=== PATIENT | male | born 1960 | race African-American/Black ===

== ENCOUNTER 2019-04-20 08:29 | Inpatient (IN) | payer MEDICARE ==
--- NOTE | 2019-04-20 08:56 | RAD ---
FRONTAL VIEW CHEST: INDICATION: Dyspnea. FINDINGS: There is enlargement of the cardiac silhouette and pulmonary vasculature. Patchy right perihilar opa cification is present. No significant effusion or discrete pneumothorax. IMPRESSION: 1. Findings indicate decompensated congestive heart failure. 2. Patchy right perihilar opacity may relate to asymmetric edema versus superimposed pneumonia. Recommend followup to resolution. Transcribed Date/Time: 04/20/2019 9:01 AM
[2019-04-20 09:04] LABS: #Basophils 0.1 thou/uL (0.0-0.2); #Eosinphils 0.1 thou/uL (0.0-0.7); #Lymphocytes 1.4 thou/uL (1.20-3.40); #Monocytes 0.6 thou/uL (0.11-0.59); %Basophils 0.8 % (0.0-1.0); %Eosinophils 1.2 % (0.0-10.0); %Lymphocytes 19.1 % (21.0-51.0); %Monocytes 7.8 % (0.0-10.0); %Neutrophils 71.1 % (42.0-75.0); Hemoglobin 10.8 g/dL (14.0-18.0); Mean Corpuscular HGB CONC 32.8 g/dL (32.0-36.0); Mean Corpuscular Hemoglobin 30.1 pg (27.0-31.0); Mean Corpuscular Volume 91.8 fL (78.0-98.0); Mean Platelet Volume 8.3 fL (7.4-10.4); Platelet Count 199 thou/uL (130-400); RBC Distribution Width 13.8 % (11.5-14.5); Red Blood Cell (RBC) Count 3.58 mill/uL (4.70-6.10); White Blood Cell (WBC) Count 7.1 thou/uL (4.8-10.8)
[2019-04-20 09:23] LABS: PTT 37.1 SEC (22.9-36.1); Prothrombin Time 22.7 SEC (12.0-14.7)
[2019-04-20 09:24] LABS: D-Dimer Test 0.95 *mcg/mL (0.27-0.43)
[2019-04-20 09:34] LABS: ALT (SGPT) 30 U/L (8-55); AST (SGOT) 24 U/L (5-34); Alkaline Phosphatase 154 U/L (40-150); Anion Gap 10 mmol/L (10-20); BUN (Urea Nitrogen) 19 mg/dL (8.4-25.7); Bilirubin, Total 0.5 mg/dL (0.2-1.2); Calc. Creatinine Clearance 0 mL/min (70-130); Calcium 9.8 mg/dL (7.8-10.44); Carbon Dioxide 27 mmol/L (22-29); Chloride 106 mmol/L (98-107); Estimated GFR-MDRD 56; Globulin 4.1 g/dL (2.4-3.5); Glucose 293 mg/dL (70-105); Potassium 4.3 mmol/L (3.5-5.1); Protein, Total 8.1 g/dL (6.0-8.3); Sodium 139 mmol/L (136-145)
[2019-04-20] MEDS ORDERED: ISOVUE-370 76%-LOCM 1 ML ONE (10:05)
--- NOTE | 2019-04-20 10:06 | ULT ---
US Venous Doppler Lt Unilat History: Known deep venous thrombosis currently on treatment Comparison: None. Findings: Real-time grayscale, color, and spectral analysis of the left lower extremity venous system was performed. The common femoral, femoral, proximal portions greater saphenous and deep femoral veins as well as the popliteal and posterior tibial veins were attempted to be interrogated. There is occlusive thrombus of the left common femoral, femoral, proximal femoral veins. Remainder of the lower extremity was unable to be visualized due to extensive edema. Impression: Occlusive thrombus within the left common femoral and proximal femoral veins. Code CR: Dr. Tim.
--- NOTE | 2019-04-20 10:28 | CT ---
Exam: CT angiogram of the chest HISTORY: Dyspnea. Difficulty breathing, x2 days. COMPARISON: None TECHNIQUE: CT angiogram of the chest is performed in the axial plane. Three-dimensional reformatted i mages are submitted for interpretation FINDINGS: Mediastinum: Scattered nonspecific, nonenlarged paratracheal lymph nodes. Prominent subcarinal lymph node measuring 2.7 x 0.9 cm. HEART: Normal size. No significant pericardial fluid. Aorta: No aneurysm or dissection Upper solid abdominal viscera: Punctate gallstones. No CT evidence of cholecystitis. There is a infer ior vena cava filter which appears to be suprarenal in location and within the intrahepatic IVC. Trachea and central bronchi: Patent Pleural spaces: Small bilateral pleural effusions Lung parenchyma: Dependent atelectatic changes. Linear opacities may represent areas of scar or atele ctasis. No consolidation or masses. Pneumothorax: None Osseous structures: No lytic or blastic lesions Pulmonary arteries: Adequate contrast opacification pulmonary arterial system to the level of segment al arteries. No filling defect to suggest pulmonary embolism IMPRESSION: 1. No evidence of pulmonary artery embolism to the segmental arteries 2. Small bilateral pleural effusions. 3. Dependent atelectatic changes, without consolidation 4. Cholelithiasis without cholecystitis 5. IVC filter as described.
[2019-04-20] MEDS ORDERED: Morphine 4 MG/ML VIAL ONE (11:29)
[2019-04-20] MEDS ORDERED: Ondansetron PF 4 MG/2 ML Vial ONE (11:29)
[2019-04-20] MEDS ORDERED: Enoxaparin Sodium 100 MG/ML SYRINGE ONE (11:29)
--- NOTE | 2019-04-20 11:36 | PDOC.FPRHP ---
- History of Present Illness Chief Complaint: Leg pain/swelling, Dyspnea History of Present Illness: Pt reports last 3-4 nights when he lays down to sleep states he is getting SOB. Pt keeps getting woke up because he is SOB. Pt reports also getting SOB if walking a short distance. Pt also reports having bilateral lower leg swelling which is chronic but worse than his baseline. Pt reports legs being swollen ever since surgery back in november 2018 where he had clots in his legs removed. Denies any chest pain or headache. Pt denies any cough. Denies an recent illness. Pt blind in Left eye. Reports this as an old problem. Pt has been without home medicine for one week including his coumadin. Denies history of cardiac problems aside from HTN. Hx is significant for previous DVT's with extensive clot burden leading to at least 3 catheterization procedures to remove clots or place stents (pt is unsure what was done). He also had an IVC filter placed. - Allergies/Adverse Reactions Allergies Allergy/AdvReac Type Severity Reaction Status Date / Time No Known Allergies Allergy Unverified 04/20/19 11:57 - Home Medications Comments: Atorvastatin 40 mg daily Hydralazine 100 mg 2 tabs by mouth 2x daily Amlodipine 10 mg once daily Metoprolol Succinate ER 25 mg 1 tab once daily Metoprolol succinate ER 75 mg 1 tab once daily. Warfarin 5 mg by mouth once daily in the evening 20u Levemir in morning and night. 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 quit smoking 30 years ago. Occasionaly drinks beer. No illicit drug use Full code - Review of Systems General: reports: fatigue. denies: fever/chills, weight/appetite/sleep changes Eyes: denies: eye pain, vision changes ENT: denies: nasal congestion, rhinorrhea Respiratory: reports: shortness of breath, exercise intolerance. denies: cough , congestion Cardiovascular: reports: edema, orthopnea. denies: chest pain, palpitation, paroxysmal nocturnal dyspnea Gastrointestinal: denies: nausea, vomiting, diarrhea, constipation, abdominal pain, GI bleeding Skin: denies: rashes, lesions, itching Musculoskeletal: reports: swelling (In his lower extremities). denies: pain, stiffness Neurological: denies: numbness, seizure, weakness Psychological: denies: anxiety, depression - Vital signs BP: [186/103] HR: [88] RR: [18] Tmax: [97.6] Pox: 90% on [RA] Wt: [] - Physical Exam Constitutional: NAD, awake, alert and oriented, well developed HEENT: normocephalic and atraumatic, PERRLA, MMM -HEENT: hyperemic conjunctiva bilaterally, loss of vision in left eye Neck: supple, FROM, no JVD Chest: no-tender to palpation Heart: RRR, normal S1/S2, no murmurs/rubs/gallops, pulses present -Heart: 1+ pitting edema on the right, 2+ on the left Lungs: no respiratory distress, no wheezing -Lungs: Bilateral crackles in middle and lower kent, good excursion Abdomen: soft, non-tender, bowel sounds present Musculoskeletal: normal structure, ROM grossly normal -Musculoskeletal: mild left calf tenderness Neurological: no focal deficit -Neurological: A&O x 3 Skin: no rash/lesions, capillary refill <2 seconds Heme/Lymphatic: no unusual bruising or bleeding, no purpura Psychiatric: normal mood and affect, intact recent and remote memory FMR H&P: Results - Labs Result Diagrams: 04/20/19 08:50 04/20/19 08:50 Lab results: WBC 7.1 thou/uL (4.8-10.8) 04/20/19 08:50 Hgb 10.8 g/dL (14.0-18.0) L 04/20/19 08:50 Hct 32.8 % (42.0-52.0) L 04/20/19 08:50 MCV 91.8 fL (78.0-98.0) 04/20/19 08:50 Plt Count 199 thou/uL (130-400) 04/20/19 08:50 Neutrophils % 71.1 % (42.0-75.0) 04/20/19 08:50 Sodium 139 mmol/L (136-145) 04/20/19 08:50 Potassium 4.3 mmol/L (3.5-5.1) 04/20/19 08:50 Chloride 106 mmol/L (98-107) 04/20/19 08:50 Carbon Dioxide 27 mmol/L (22-29) 04/20/19 08:50 BUN 19 mg/dL (8.4-25.7) 04/20/19 08:50 Creatinine 1.54 mg/dL (0.7-1.3) H 04/20/19 08:50 Glucose 293 mg/dL (70-105) H 04/20/19 08:50 Calcium 9.8 mg/dL (7.8-10.44) 04/20/19 08:50 Total Bilirubin 0.5 mg/dL (0.2-1.2) 04/20/19 08:50 AST 24 U/L (5-34) 04/20/19 08:50 ALT 30 U/L (8-55) 04/20/19 08:50 Alkaline Phosphatase 154 U/L (40-150) H 04/20/19 08:50 B-Natriuretic Peptide 101.9 pg/mL (0-100) H 04/20/19 08:50 Serum Total Protein 8.1 g/dL (6.0-8.3) 04/20/19 08:50 Albumin 4.0 g/dL (3.5-5.0) 04/20/19 08:50 - Radiology Interpretation CT scan - chest Status: image reviewed by me, report reviewed by me (No evidence of PAE to segment arteries. Small bilateral pleural effusions. Dependent atelectatic changes w/o consolidation, cholelithiasis w/o cholecystitis, IVC filter as described) US - venous Status: image reviewed by me, report reviewed by me (Occlusive thrombus w/n left common femoral and proximal femoral veins) Chest x-ray Status: image reviewed by me, report reviewed by me (findings indicate decompensated CHF. Patchy R. perihilar opacity may relate to asymmetiric edema vs superimposed pneumonia) FMR H&P: A/P - Problem List (1) DVT (deep venous thrombosis) Current Visit: Yes Status: Acute Code(s): I82.409 - ACUTE EMBOLISM AND THOMBOS UNSP DEEP VN UNSP LOWER EXTREMITY (2) Congestive heart failure (CHF) Current Visit: Yes Status: Acute Code(s): I50.9 - HEART FAILURE, UNSPECIFIED (3) Hypertension Current Visit: Yes Status: Acute Code(s): I10 - ESSENTIAL (PRIMARY) HYPERTENSION (4) Diabetes mellitus type 2, insulin dependent Current Visit: Yes Status: Acute Code(s): E11.9 - TYPE 2 DIABETES MELLITUS WITHOUT COMPLICATIONS; Z79.4 - NURSE MONITORING (CURRENT) USE OF INSULIN (5) Anemia Current Visit: Yes Status: Acute Code(s): D64.9 - ANEMIA, UNSPECIFIED (6) Acute kidney injury Current Visit: Yes Status: Acute Code(s): N17.9 - ACUTE KIDNEY FAILURE, UNSPECIFIED - Plan Deep Vein Thrombosis Previous DVT's requiring vascular catheterization for removal and placement of IVC filter, off of coumadin for 5 days recently, 2+ pitting edema on the left LLE US: occlusive thrombus within the left common femoral and proximal femoral veins CTA chest: no evidence of PE, bilateral pleural effusions, cholelithiasis, IVC filter -INR 2.0, D-dimer 0.95 -restart pt's coumadin 5mg -consider CV surg consult to assess for possibility of endovascular intervention -IVC filter in place -trying to obtain previous medical records from [facility] where procedures were preformed previously Dyspnea/Orthopnea - likely 2/2 CHF -BNP of 101.9 -Anemia 10.9 -holding off on IV fluids -Fluid restriction and low salt diet -Echo ordered -Lasix 20mg BID -Initial troponin neg, will trend DM II - insulin dependent -restart long acting insulin 20 units am and 20 units pm -mild sliding scale -hypoglycemia protocol -holding metformin due to current renal function REX -Cr 1.54 in the ED -unsure if this is baseline renal function in uncontrolled diabetic patient -holding off on fluids while we assess for new onset CHF -Lasix 20mg BID Hypertension -pt with SBP in 180's in the ED -restarted on home medications: metoprolol, amlodipine, hydralazine -will assess for control -consider starting ACEi due to DM for renal protection Condition: Stable Code status: Full Fluids: SL Diet: HH - low salt and fluid restriction 1800 Dispo: Admit to Telemetry, inpt with expected LOS >48hr in likely new onset CHF FMR H&P: Upper Level - Pertinent history I typed the above HPI. All findings and edits can be found above. - Pertinent findings CTA- no PE. IVC filter in place. Venous doppler shows femoral vein DVT. BNP in 100's. CXR shows decompensated CHF - Plan Date/Time: 04/20/19 8496 I, [Dima Royal, PGY-3], have evaluated this patient and agree with findings/plan as outlined by senior international tax manager resident. I was present with the senior international tax manager during the HPI interview. I scribed for the senior international tax manager. I made edits as needed and agree with above HPI. Pertinent changes/additions are listed here. Pt coming here w/ c/c of orthopnea. BNP mildly elevated. Bilateral Lung crackles on physical exam with bilateral Leg swelling. Will work up pt for new onset CHF. Will give lasix IV 20 mg. Will get ECHO. Consulted CHF clinic and cardiac rehab. May consider cardiac consult tmrw. Will trend troponin x3. Pt also has Femoral vein DVT. Pt has hx of blood clots. Will try and get records from [facility]. IVC filter in place noted on CTA. INR 2.0 and takes warfarin at home. continue current dosage. [place] for pain as needed.
[2019-04-20 13:26] LABS: Troponin I Less than 0.010 ng/mL (< 0.028)
[2019-04-20] MEDS ORDERED: Ondansetron PF 4 MG/2 ML Vial IVP PRN (14:58)
[2019-04-20] MEDS ORDERED: HYDROcodone/Acetaminophen 5/325 mg Tablet PO PRN ×2 (14:58)
[2019-04-20] MEDS ORDERED: Ondansetron ODT 4 MG TAB SL PRN (14:58)
[2019-04-20] MEDS ORDERED: Acetaminophen 325 MG TAB PO PRN ×2 (14:58→15:00)
[2019-04-20 15:03] VITALS: BMI 33.3
[2019-04-20] MEDS ORDERED: Dextrose 50% Abboject 50 ML SYRINGE SLOW IVP PRN (15:40)
[2019-04-20] MEDS ORDERED: Dextrose 5% in Water 1,000 ML IV PRN (15:40)
--- NOTE | 2019-04-20 16:52 | PDOC.EVN ---
Event Note - Event Note Event Note: Date/Time: 04/20/19 1650 I personally evaluated the patient and discussed the management with Dr. Perez I agree with the History, Examination, Assessment and Plan documented above with any addition or exceptions noted below - 58 yo male with h/o HTN, HLD, DM, h/o DVT on coumadin presented with SOB /orthopnea x 1 week. Has also had increased pedal edema. Denies any chest pain. (+) palpitations. Denies any fever /chills/cough/URI symptoms. States that he has been off his warfarin for last 5 days. PMH/PSH/Meds/All reviewed and agree with resident's documentation. T97.5 P82 RR18 BP 183/91 95% RA Exam repeated by me and agree with resident's findings. Labs: Ck=999, K=4.3, Fo=389, CO2=27, BUN/Cr=19/1.54, Wyxb=385, WBC=7.1 , H/H=10.8/32.8, Egi=559, PT/INR=22.7/2.0, RVJ=391.9, trop I<0.010, EKG= NSR, no ST changes. CXR- cardiomegaly and increased pulmonary vasculature. Venous doppler - occlusive thrombus in common femoral and proximal femoral vein. CT angio chest- no evidence of PE; small b/l pleural effusions. A/P: 1) Dyspnea/ orthopnea- unclear etiology- possible CHF. Will check echo. Consider obtaining records from prior physcian in [place]. 2) DVT- therapeutic on coumadin; continue warfarin; Monitor PT/INR. 3) DM- continue home meds. 4) HTN- resume home meds and adjust as needed.
[2019-04-20 18:01] LABS: Troponin I Less than 0.010 ng/mL (< 0.028)
[2019-04-20] MEDS ORDERED: hydrALAZINE 25 MG TAB PO SCH ×3 (21:00)
[2019-04-20] MEDS: Atorvastatin Calcium 40 MG TAB PO SCH (21:11)
[2019-04-20] MEDS: Insulin Glargine 20 UNITS in Pre-Filled Syringe SC SCH (21:12)
[2019-04-21 05:24] LABS: #Eosinphils 0.1 thou/uL (0.0-0.7); #Lymphocytes 1.5 thou/uL (1.20-3.40); #Monocytes 0.7 thou/uL (0.11-0.59); #Neutrophils 4.8 thou/uL (1.40-6.50); %Basophils 0.3 % (0.0-1.0); %Eosinophils 1.7 % (0.0-10.0); %Lymphocytes 20.6 % (21.0-51.0); %Monocytes 9.5 % (0.0-10.0); %Neutrophils 67.9 % (42.0-75.0); Hemoglobin 10.1 g/dL (14.0-18.0); Mean Corpuscular HGB CONC 32.8 g/dL (32.0-36.0); Mean Corpuscular Hemoglobin 30.1 pg (27.0-31.0); Mean Platelet Volume 8.8 fL (7.4-10.4); Platelet Count 184 thou/uL (130-400); RBC Distribution Width 13.9 % (11.5-14.5); Red Blood Cell (RBC) Count 3.35 mill/uL (4.70-6.10); White Blood Cell (WBC) Count 7.1 thou/uL (4.8-10.8)
[2019-04-21 05:27] LABS: INR-International Normal Ratio 2.2; Prothrombin Time 24.1 SEC (12.0-14.7)
[2019-04-21 05:44] LABS: Anion Gap 11 mmol/L (10-20); BUN (Urea Nitrogen) 18 mg/dL (8.4-25.7); Calc. Creatinine Clearance 81 mL/min (70-130); Calcium 9.3 mg/dL (7.8-10.44); Carbon Dioxide 26 mmol/L (22-29); Chloride 108 mmol/L (98-107); Estimated GFR-MDRD 61; Glucose 187 mg/dL (70-105); Potassium 4.2 mmol/L (3.5-5.1); Sodium 141 mmol/L (136-145)
[2019-04-21] MEDS: Furosemide 20 MG/2 ML VIAL SLOW IVP SCH ×2 (06:24→14:43)
--- NOTE | 2019-04-21 06:37 | PDOC.FM ---
- Subjective Subjective: Pt states his breathing is much better this morning. He did not notice any troubles with breathing through the night. He states his legs are still swollen. Denies any pain in the left leg. Pt is complaining about the diabetic diet not being enough food for him. - Objective Vital Signs & Weight: Vital Signs (12 hours) Temp Pulse Resp BP Pulse Ox 04/21/19 04:03 97.9 F 88 18 155/75 H 94 L 04/20/19 23:27 91 181/81 H 04/20/19 20:00 97.9 F 86 16 181/95 H 95 Weight Weight 123.332 kg I&O: 04/19/19 04/20/19 04/21/19 06:59 06:59 06:59 Intake Total 850 Output Total 425 Balance 425 Result Diagrams: 04/21/19 04:30 04/21/19 04:30 Phys Exam - Physical Examination Constitutional: NAD HEENT: PERRLA, moist MMs Loss of vision in left eye Neck: no JVD, full ROM Respiratory: no wheezing Very mild crackles in middle and lower kent Cardiovascular: RRR, no significant murmur Gastrointestinal: soft, non-tender, no distention, positive bowel sounds Musculoskeletal: pulses present, edema present (2+ on the left, 1+ on the right) Neurological: non-focal, normal sensation, moves all 4 limbs Psychiatric: normal affect, A&O x 3 Skin: no rash, cap refill <2 seconds Dx/Plan (1) DVT (deep venous thrombosis) Code(s): I82.409 - ACUTE EMBOLISM AND THOMBOS UNSP DEEP VN UNSP LOWER EXTREMITY Status: Acute (2) Congestive heart failure (CHF) Code(s): I50.9 - HEART FAILURE, UNSPECIFIED Status: Acute (3) Hypertension Code(s): I10 - ESSENTIAL (PRIMARY) HYPERTENSION Status: Acute (4) Diabetes mellitus type 2, insulin dependent Code(s): E11.9 - TYPE 2 DIABETES MELLITUS WITHOUT COMPLICATIONS; Z79.4 - MCFP (CURRENT) USE OF INSULIN Status: Acute (5) Anemia Code(s): D64.9 - ANEMIA, UNSPECIFIED Status: Acute (6) Acute kidney injury Code(s): N17.9 - ACUTE KIDNEY FAILURE, UNSPECIFIED Status: Acute - Plan Plan: Deep Vein Thrombosis Previous DVT's requiring vascular catheterization for removal and placement of IVC filter, off of coumadin for 5 days recently, 2+ pitting edema on the left LLE US: occlusive thrombus within the left common femoral and proximal femoral veins CTA chest: no evidence of PE, bilateral pleural effusions, cholelithiasis, IVC filter -INR 2.0, D-dimer 0.95 -restart pt's coumadin 5mg -consider CV surg consult to assess for possibility of endovascular intervention -IVC filter in place -trying to obtain previous medical records from [facility] where procedures were preformed previously Dyspnea/Orthopnea - likely 2/2 CHF -BNP of 101.9 -Anemia 10.9 -holding off on IV fluids -Fluid restriction and low salt diet, pt is currently up 400ml since admission - reminded him to watch amount of fluid intake -Echo ordered -Lasix 20mg BID -Troponin negative x3 DM II - insulin dependent -restart long acting insulin 20 units am and 20 units pm -mild sliding scale -hypoglycemia protocol -holding metformin due to current renal function REX -Cr 1.54 > 1.44 -unsure if this is baseline renal function in uncontrolled diabetic patient -holding off on fluids while we assess for new onset CHF -Lasix 20mg BID Hypertension -pt with SBP in 180's in the ED -restarted on home medications: metoprolol, amlodipine, hydralazine -will assess for control -consider starting ACEi due to DM for renal protection Condition: Stable Code status: Full Fluids: SL Diet: HH - low salt and fluid restriction 1800 Dispo: Admit to Telemetry, inpt with expected LOS >48hr in likely new onset CHF
[2019-04-21] MEDS ORDERED: metFORMIN XR 500 MG TAB PO SCH (08:00)
[2019-04-21] MEDS: Insulin Glargine 20 UNITS in Pre-Filled Syringe SC SCH ×2 (09:19→20:25)
[2019-04-21] MEDS: HumaLOG 300 UNITS/3 ML VIAL SC PRN ×3 (09:20→17:33)
[2019-04-21] MEDS: Amlodipine 10 MG TAB PO SCH (09:21)
[2019-04-21] MEDS: Lisinopril/Hydrochlorothiazide 10 mg/12.5 mg Tablet PO SCH (10:05)
--- NOTE | 2019-04-21 12:23 | PRG ---
DATE OF SERVICE: 04/21/2019 Mr. Bustamante is a pleasant 58-year-old black man with a history of DVT. He has been admitted with increased peripheral edema of short duration, suggesting the possibility of new onset heart failure. We have started diuresis and are awaiting the results of an echocardiogram to pursue further treatment. In the event clinically, he seems to be feeling fine this morning. We will also attempt to obtain rather extensive records from [facility] for a large workup he had for DVT in November of this year. Job ID: [id number]
[2019-04-21] MEDS ORDERED: Warfarin Sodium 5 MG TAB PO SCH (17:00)
[2019-04-21] MEDS ORDERED: hydrALAZINE 20 MG/ML VIAL SLOW IVP PRN (18:35)
[2019-04-21] MEDS: Atorvastatin Calcium 40 MG TAB PO SCH (20:25)
[2019-04-22 04:53] LABS: INR-International Normal Ratio 1.8; Prothrombin Time 21.2 SEC (12.0-14.7)
[2019-04-22] MEDS: Furosemide 20 MG/2 ML VIAL SLOW IVP SCH ×2 (05:44→14:48)
--- NOTE | 2019-04-22 05:59 | PDOC.FM ---
- Subjective Subjective: Pt states he continues to feel well today. Denies any current SOB. Pt's only complaint is that he is hungry because the heart healthy diet is not enough food for him. feels his legs look much less swollen. - Objective Vital Signs & Weight: Vital Signs (12 hours) Temp Pulse Resp BP Pulse Ox 04/22/19 03:13 98.4 F 86 16 179/87 H 95 04/21/19 23:37 92 152/69 H 04/21/19 20:00 97.9 F 91 16 162/75 H 94 L 04/21/19 18:10 184/90 H Weight Weight 121.427 kg I&O: 04/20/19 04/21/19 04/22/19 06:59 06:59 06:59 Intake Total 850 1030 Output Total 425 1900 Balance 425 -870 Result Diagrams: 04/22/19 06:53 04/22/19 06:53 Phys Exam - Physical Examination Constitutional: NAD HEENT: PERRLA Left eye vision loss Neck: no JVD, full ROM Respiratory: no wheezing, no rhonchi few diffuse rales Cardiovascular: RRR, no significant murmur, no rub Gastrointestinal: soft, non-tender, no distention Musculoskeletal: pulses present, edema present (1+ on left, non on right lower leg) Neurological: non-focal, moves all 4 limbs Psychiatric: normal affect, A&O x 3 Skin: cap refill <2 seconds Dx/Plan (1) DVT (deep venous thrombosis) Code(s): I82.409 - ACUTE EMBOLISM AND THOMBOS UNSP DEEP VN UNSP LOWER EXTREMITY Status: Acute (2) Congestive heart failure (CHF) Code(s): I50.9 - HEART FAILURE, UNSPECIFIED Status: Acute (3) Hypertension Code(s): I10 - ESSENTIAL (PRIMARY) HYPERTENSION Status: Acute (4) Diabetes mellitus type 2, insulin dependent Code(s): E11.9 - TYPE 2 DIABETES MELLITUS WITHOUT COMPLICATIONS; Z79.4 - ASSISTED (CURRENT) USE OF INSULIN Status: Acute (5) Anemia Code(s): D64.9 - ANEMIA, UNSPECIFIED Status: Acute (6) Acute kidney injury Code(s): N17.9 - ACUTE KIDNEY FAILURE, UNSPECIFIED Status: Acute - Plan Plan: Deep Vein Thrombosis Previous DVT's requiring vascular catheterization for removal and placement of IVC filter, off of coumadin for 5 days recently, 2+ pitting edema on the left LLE US: occlusive thrombus within the left common femoral and proximal femoral veins CTA chest: no evidence of PE, bilateral pleural effusions, cholelithiasis, IVC filter -INR 1.8 this morning, will have him take 7.5mg warfarin tonight - titrate outpt -IVC filter in place -trying to obtain previous medical records from [facility] where procedures were preformed previously Dyspnea/Orthopnea - likely 2/2 CHF -BNP of 101.9 -Anemia 10.9 -holding off on IV fluids -Fluid restriction and low salt diet, pt is currently up 400ml since admission - reminded him to watch amount of fluid intake -Echo: 50-55%, moderate concentric LVH, thickening of aortic valve -Lasix 20mg BID -Troponin negative x3 DM II - insulin dependent -restart long acting insulin 20 units am and 20 units pm -mild sliding scale -hypoglycemia protocol -holding metformin due to current renal function REX -Cr 1.54 > 1.44 > 1.33 -unsure if this is baseline renal function in uncontrolled diabetic patient -holding off on fluids while we assess for new onset CHF -Lasix 20mg BID Hypertension -pt with SBP in 180's in the ED -restarted on home medications: metoprolol, amlodipine, hydralazine (reduced to 50 TID) -will assess for control -started lisinopril-hctz Condition: Stable Code status: Full Fluids: SL Diet: HH - low salt and fluid restriction 1800 Dispo: Admit to Telemetry, inpt with expected LOS >48hr in likely new onset CHF
[2019-04-22 07:14] LABS: #Eosinphils 0.1 thou/uL (0.0-0.7); #Lymphocytes 1.6 thou/uL (1.20-3.40); #Monocytes 0.7 thou/uL (0.11-0.59); #Neutrophils 4.7 thou/uL (1.40-6.50); %Basophils 0.6 % (0.0-1.0); %Eosinophils 1.5 % (0.0-10.0); %Lymphocytes 22.4 % (21.0-51.0); %Neutrophils 65.5 % (42.0-75.0); Hemoglobin 10.4 g/dL (14.0-18.0); Mean Corpuscular HGB CONC 32.5 g/dL (32.0-36.0); Mean Corpuscular Hemoglobin 29.1 pg (27.0-31.0); Mean Corpuscular Volume 89.7 fL (78.0-98.0); Mean Platelet Volume 8.7 fL (7.4-10.4); Platelet Count 186 thou/uL (130-400); RBC Distribution Width 13.9 % (11.5-14.5); Red Blood Cell (RBC) Count 3.58 mill/uL (4.70-6.10); White Blood Cell (WBC) Count 7.2 thou/uL (4.8-10.8)
[2019-04-22 07:24] LABS: Anion Gap 14 mmol/L (10-20); BUN (Urea Nitrogen) 18 mg/dL (8.4-25.7); Calc. Creatinine Clearance 101 mL/min (70-130); Calcium 9.7 mg/dL (7.8-10.44); Carbon Dioxide 26 mmol/L (22-29); Chloride 103 mmol/L (98-107); Estimated GFR-MDRD 66; Glucose 95 mg/dL (70-105); Potassium 3.8 mmol/L (3.5-5.1); Sodium 139 mmol/L (136-145)
[2019-04-22] MEDS: hydrALAZINE 25 MG TAB PO SCH ×2 (09:33→14:46)
[2019-04-22] MEDS: Insulin Glargine 20 UNITS in Pre-Filled Syringe SC SCH (09:35)
[2019-04-22] MEDS: Lisinopril/Hydrochlorothiazide 10 mg/12.5 mg Tablet PO SCH (09:35)
[2019-04-22] MEDS: Amlodipine 10 MG TAB PO SCH (09:52)
[2019-04-22] MEDS: HumaLOG 300 UNITS/3 ML VIAL SC PRN (11:40)
--- NOTE | 2019-04-22 11:59 | PRG ---
DATE OF SERVICE: 04/22/2019 Mr. Bustamante continues to feel well today. We are still adjusting his Coumadin to get his prothrombin time up above at least 2. He has been diuresing well and his legs are less swollen. We have been unable to obtain records from [facility] system. In the event, clinically he is improving, he is likely ready for discharge this afternoon or tomorrow. Job ID: [id number]
[2019-04-22 16:40] VITALS: BP 168/80; TEMP 98.4
--- NOTE | 2019-04-23 06:09 | PQF ---
[employer] Winform Viewer NATHAN BRANDON RAMU ECHEVARRIA [id number] CLINICAL DOCUMENTATION CLARIFICATION FORM: POST DISCHARGE Addendum to original discharge summary date: ____ Late entry note date: __ DATE: 04/23/19 ATTN: Ramu Echevarria Please exercise your independent, professional judgment in responding to the clarification form. Clinical indicators are provided on the bottom of this form for your review Based on your clinical judgment kindly clarify the type and acuity of the patients CHF. Please check appropriate box(s): HEART FAILURE: A. TYPE: [ ] Systolic / HFrEF [ ] Diastolic / HFpEF [ ] Combined Systolic / Diastolic B. ACUITY [ ] Acute [ ] Acute on Chronic [ ] Chronic [ ] Other diagnosis pleas specify [ ] Unable to determine For continuity of documentation, please document condition throughout progress notes and discharge summary. Thank You. CLINICAL INDICATORS - SIGNS / SYMPTOMS / LABS H and P 04/20/19 pg.1- Chief complaint: leg pain/swelling, Dyspnea H and P 04/20/19 pg.4- Chest x-ray: findings indicate decompensated CHF, Patchy R. perihilar opacity may related to asymptomatic edema vs superimposed pneumonia H and P 04/20/19 pg.4- Problem list: Congestive heart failure, status:Acute H and P 04/20/19 pg.5- Dyspnea/orthopnea-likely 2/2CHF H and P 04/20/19 pg.5- BNP 101.9 PN 04/21 Dr. Solomon pg.1- He has been admitted with increased peripheral edema of short duration, suggesting the possibility of new onset heart failure. Family PN 04/22/19 Dr. Perez pg.3- Echo: 50-55%, moderate concentric LVH, thickening of aortic valve. RISKS: DM type 2-Family PN 04/22/19 Dr. Perez pg.3 Hypertension- Family PN 04/22/19 Dr. Perez pg.3 REX- Family PN 04/22/19 Dr. Perez pg.3 TREATMENTS: Chest X-ray- 04/20 TTE- Echocardiogram report 04/21 I and O monitoring Furosemide (Lasix) 20mg IV- NOV 27 (This form is maintained as a part of the permanent medical record) 2014 [employer]. All Rights Reserved Angel [email or web address] [not provided] [email or web address]
--- NOTE | 2019-04-23 08:52 | DIS ---
DATE OF ADMISSION: 04/20/2019 DATE OF DISCHARGE: 04/22/2019 RESIDENT: David Perez DO ADMITTING ATTENDING: Suri Pena MD DISCHARGE ATTENDING: Ramu Vega MD CONSULTS: Case Management. PROCEDURES: None. PRIMARY DIAGNOSES: 1. Deep vein thrombosis. 2. Acute kidney injury. 3. Volume overload. SECONDARY DIAGNOSES: 1. Medication noncompliance. 2. Hypertension. 3. Diabetes mellitus type 2. DISCHARGE MEDICATIONS: 1. Acetaminophen 650 mg p.o. q.4 hours p.r.n. 2. Amlodipine 10 mg daily. 3. Atorvastatin 40 mg daily. 4. Hydralazine 75 mg t.i.d. 5. Lantus 20 units at bedtime. 6. Lisinopril/hydrochlorothiazide 10 mg/12.5 mg daily. 7. Metoprolol 100 mg daily. 8. Warfarin 5 mg daily, 7.5 mg only on day of discharge. DISCONTINUED MEDICATIONS: Hydralazine 200 mg b.i.d. HISTORY OF PRESENT ILLNESS AND HOSPITAL COURSE: The patient presented to the ED reporting 3 to 4 nights of orthopnea and dyspnea with exertion. He also states worsening of his chronic bilateral lower leg swelling. The patient has a history of DVTs with multiple vascular interventions, most recently in November of this year. The patient does not know if these were clot retrievals, endarterectomies, or stent placement. He did have an IVC filter placed. All of these procedures were done at [facility] in [place]. The patient noted that he has been without his medications for about 5 days including his Coumadin. However, on his presentation to the emergency room, he had an INR of 2.0. CTA of the chest in the ED was negative for any pulmonary embolisms and showed small bilateral pleural effusion and dependent atelectasis, incidental cholelithiasis without cholecystitis and an IVC filter. Ultrasound of the patient's left leg showed an occlusive thrombus within the left common femoral and proximal femoral veins. When the patient was notified of this, he stated that was the same leg and area that he has previously been evaluated for clots. He could not say whether or not the clot has been there all along or if his previous procedures were to remove the clot. Over the next few days, the patient was given IV diuretics and his shortness of breath gradually improved. He was restarted on his warfarin. His hydralazine was reduced from 200 mg b.i.d., exceeding the recommended maximum dose of 300 mg in a day. He was instead started on hydralazine 75 mg t.i.d. and a combination of lisinopril/hydrochlorothiazide 10/12.5 daily for added renal protection in a diabetic patient. The patient had an echo to evaluate for possible congestive heart failure. This resulted with an EF of 50% to 55%, moderate concentric left ventricular hypertrophy, thickened aortic valve leaflets, and mild mitral and tricuspid regurgitation. The patient was instructed that he will need to follow up with his primary care provider and translator closely upon discharge as he has multiple problems that will need to be closely observed and titrated over a number of weeks. We attempted to obtain the records from the patient's previous hospitalization at [facility], but we were unable to prior to the patient's discharge. The patient was counseled on the importance of continuing to take his medications as prescribed. The patient and expressed understanding of this and knew they needed to work harder in the future. At the time of discharge, the patient denied any shortness of breath when lying down or any shortness of breath while ambulating that was beyond what he considered his baseline. DISPOSITION: Stable. DISCHARGE INSTRUCTIONS: 1. Location: Home. 2. Diet: Heart healthy, carb conscious. 3. Activity: As tolerated. 4. Followup: Follow up Dr. Naylor's office within 7 days. Laboratory Technician as soon as available Job ID: [id number] MTDD
--- NOTE | 2019-04-27 15:43 | EKG ---
Test Reason : Blood Pressure : / mmHG Vent. Rate : 092 BPM Atrial Rate : 092 BPM P-R Int : 116 ms QRS Dur : 092 ms QT Int : 376 ms P-R-T Axes : 042 -30 113 degrees QTc Int : 464 ms Normal sinus rhythm Left axis deviation T wave abnormality, consider lateral ischemia Prolonged QT Abnormal ECG Confirmed by LYNDSAY TORRES M.D. ([id number]), food editor YVETTE VELOZ ([id number]) on 04/27/2019 3:43:20 PM Referred By: Confirmed By:LYNDSAY TORRES M.D.
== END 2019-04-22 16:27 | disposition home or self-care (01) | DRG 300 ==
LOC: ERS 08:29 → 2NO 14:48
PROVIDERS: ADMIT Family Medicine; ATTEND Family Medicine
DX: I82.412 Acute embolism and thrombosis of left femoral vein (principal); N17.9 Acute kidney failure, unspecified; E11.9 Type 2 diabetes mellitus without complications; E78.00 Pure hypercholesterolemia, unspecified; I11.0 Hypertensive heart disease with heart failure; I50.9 Heart failure, unspecified; D64.9 Anemia, unspecified; Z79.899 Other long term (current) drug therapy; Z79.02 Long term (current) use of antithrombotics/antiplatelets
CPT/HCPCS: 36415; 36416; 71045; 71275; 80048; 80053; 83880; 84484; 85025; 85379; 85610; 85730; 93005; 93306; 96372; 96374; 96375; J0360; J1650; J1815; J1940; J2270; J2405; Q9966

== ENCOUNTER 2019-06-02 14:51 | Inpatient (IN) | payer MEDICARE ==
[~2019-06-02 14:51] MED LIST: ISOVUE-370 76%-LOCM 1 ML ONE
--- NOTE | 2019-06-02 15:40 | RAD ---
EXAM: CHEST ONE VIEW HISTORY: Shortness of breath. COMPARISON: 04/20/2019 FINDINGS: The cardiac silhouette is magnified by projection but does appear mildly enlarged. Pulmonary vasculat ure also appears mildly increased. There is nodular prominence in the right hilar region which is stable when compared to the prior exam. Prior CTA of the thorax on 04/20/2019 did demonstrate enlargem ent and dilatation of the azygos vein which likely accounts for this finding. No consolidation or definite pleural fluid is seen. No other interval change. IMPRESSION: Cardiomegaly and mild pulmonary vascular congestion. Correlation for mild CHF is recommended.
[2019-06-02 15:54] LABS: #Eosinphils 0.1 thou/uL (0.0-0.7); #Lymphocytes 1.3 thou/uL (1.20-3.40); #Monocytes 0.6 thou/uL (0.11-0.59); #Neutrophils 5.3 thou/uL (1.40-6.50); %Basophils 0.3 % (0.0-1.0); %Eosinophils 1.1 % (0.0-10.0); %Lymphocytes 17.6 % (21.0-51.0); %Monocytes 7.8 % (0.0-10.0); %Neutrophils 73.1 % (42.0-75.0); Hemoglobin 10.4 g/dL (14.0-18.0); Mean Corpuscular HGB CONC 31.2 g/dL (32.0-36.0); Mean Corpuscular Hemoglobin 29.7 pg (27.0-31.0); Mean Platelet Volume 8.6 fL (7.4-10.4); Platelet Count 189 thou/uL (130-400); RBC Distribution Width 13.1 % (11.5-14.5); White Blood Cell (WBC) Count 7.3 thou/uL (4.8-10.8)
[2019-06-02 16:04] LABS: Bilirubin Negative (Negative); Blood, Urine 1+ (Negative); Clarity Clear (Clear); Glucose, Urine (Dipstick) 500 mg/dL (Negative); Leukocyte Negative Leu/uL (Negative); Nitrite Negative (Negative); Protein, Urine (Dipstick) 30 mg/dL (Neg-Trace); Squamous Epithelial 0-3 HPF (0-3); Urobilinogen Normal mg/dL (Less than 2); WBC/HPF 0-3 HPF (0-3)
[2019-06-02 16:05] LABS: Bacteria/HPF 1+ HPF (None Seen)
[2019-06-02 16:18] LABS: ALT (SGPT) 21 U/L (8-55); AST (SGOT) 15 U/L (5-34); Albumin 4.1 g/dL (3.5-5.0); Alkaline Phosphatase 113 U/L (40-150); Anion Gap 13 mmol/L (10-20); BUN (Urea Nitrogen) 22 mg/dL (8.4-25.7); Bilirubin, Total 0.3 mg/dL (0.2-1.2); CK (CPK) 81 U/L (30-200); Calc. Creatinine Clearance 0 mL/min (70-130); Calcium 9.2 mg/dL (7.8-10.44); Carbon Dioxide 26 mmol/L (22-29); Chloride 106 mmol/L (98-107); Estimated GFR-MDRD 52; Globulin 3.7 g/dL (2.4-3.5); Glucose 229 mg/dL (70-105); Potassium 4.6 mmol/L (3.5-5.1); Protein, Total 7.8 g/dL (6.0-8.3); Sodium 140 mmol/L (136-145)
[2019-06-02] MEDS ORDERED: Furosemide 40 MG/4 ML VIAL ONE (16:59)
[2019-06-02] MEDS ORDERED: Nitroglycerin 2% Ointment 1 INCH/1 GM Packet ONE (16:59)
--- NOTE | 2019-06-02 18:22 | CT ---
ANGIOYGRAM OF THE CHEST 06/02/19 COMPARISON: 04/20/19. HISTORY: Two weeks of shortness of breath. TECHNIQUE: CT angiogram of the chest is performed in the axial plane. Three dimensional reformatted images are s ubmitted for interpretation. FINDINGS: No mediastinal mass, lymphadenopathy, or hematoma. Heart is enlarged. Trace amount of pericardial flu id. The thoracic aorta and upper abdominal aorta have a normal caliber. No periaortic fat stranding. There is evidence of hepatomegaly. Stable positioning of an IVC filter. Trachea and central bronchi are patent. There are patchy ground glass opacities in the lung parenchym a. Additional linear opacities are noted and likely represent areas of scar and atelectasis. Bilatera l lower lobe peribronchial thickening may be due to reactive change. Bilateral lower lobe edema/pneum onia cannot be excluded. Small bilateral pleural effusions are unchanged. The degree of opacification in the left peribronchial region and right peribronchial region has developed since the previous ex am. There is no pneumothorax. Adequate contrast opacification of the pulmonary arterial system to the level of the segmental arteri es. No filling defect to suggest thromboembolism. There are no lytic or blastic lesions in the osseous structures. IMPRESSION: 1. No evidence of pulmonary artery embolism to the level of the segmental arteries. 2. Interval development of peribronchial thickening involving both lower lobes. Correlate for v iral or reactive process. Additionally, patchy ground glass opacities are noted. Correlate for edema. The possibility of an aspiration pneumonia in the left lower lobe cannot be excluded. Continued surv eillance is recommended. POS: PPP
[2019-06-02 19:09] LABS: Troponin I Less than 0.010 ng/mL (< 0.028)
[2019-06-02] MEDS ORDERED: hydrALAZINE 20 MG/ML VIAL SLOW IVP PRN (21:03)
[2019-06-02] MEDS ORDERED: Dextrose 50% Abboject 50 ML SYRINGE SLOW IVP PRN (21:03)
[2019-06-02] MEDS ORDERED: Ondansetron PF 4 MG/2 ML Vial IVP PRN (21:03)
[2019-06-02] MEDS ORDERED: Ondansetron ODT 4 MG TAB PO PRN (21:03)
[2019-06-02] MEDS ORDERED: HumaLOG 300 UNITS/3 ML VIAL SC PRN ×2 (21:03)
[2019-06-02] MEDS ORDERED: Dextrose 5% in Water 1,000 ML IV PRN (21:03)
[2019-06-02 22:41] VITALS: BMI 37.5
[2019-06-02 22:59] LABS: Troponin I Less than 0.010 ng/mL (< 0.028)
[2019-06-03] MEDS: Acetaminophen 325 MG TAB PO PRN (00:12)
[2019-06-03] MEDS: diphenhydrAMINE 25 MG CAP PO PRN ×2 (00:12→21:09)
--- NOTE | 2019-06-03 02:29 | HP ---
PRIMARY CARE PHYSICIAN: Dr. Gopal Sierra. CHIEF COMPLAINT: Shortness of breath. HISTORY OF PRESENT ILLNESS: Mr. Bustamante is a pleasant 58-year-old gentleman, who has a history of chronic diastolic heart failure as well as hypertension and diabetes. He was in his usual state of health until a couple of weeks ago when he says he was extremely short of breath. He says that he was having difficulty breathing. He has had dyspnea on exertion for over several months and he says that he was having trouble to the point where he could not lay down because he could not catch his breath. He also notes increasing lower extremity edema, but denies having any chest pain. He admits that he has been out of his medications for a couple of days. His is at the bedside and says that she lost his Lasix and only just found it today and had been out at least a couple of days, and then also there are some other medications she says that are at the pharmacy that she is not really sure what the names of them are, but he has not had them. He is also quite upset about some of the care that he had received in the [facility]. He says that he feels like he had been experimented on and says that ever since 2013, he has been having these problems. He denies any fevers or chills. No nausea, no vomiting, and otherwise no other complaints. REVIEW OF SYSTEMS: CONSTITUTIONAL: No fevers, chills, or night sweats. No weight loss. HEENT: No headaches. No dizziness. No visual changes. No sore throat. No adenopathy. No bruits. PULMONARY: No hemoptysis, no cough, no wheezing. CARDIOVASCULAR: Is as the history of present illness. GASTROINTESTINAL: No abdominal pain. No nausea. No vomiting. No change in bowels. GENITOURINARY: No urinary frequency or hematuria. No hesitancy. MUSCULOSKELETAL: No muscle pains. No weakness. NEUROLOGIC: No focal weakness, numbness, or seizures, although he does admit to some vision loss in his left eye. SKIN AND INTEGUMENT: No skin changes. No rash. PSYCHIATRIC: No symptoms of anxiety or depression. PAST MEDICAL HISTORY: Significant for diabetes, hypercholesterolemia, hypertension, chronic diastolic heart failure history of deep vein thrombosis in the left lower extremity. PAST SURGICAL HISTORY: He has had what sounds like an IVC filter placement. ALLERGIES: NO KNOWN DRUG ALLERGIES. SOCIAL HISTORY: He denies smoking currently. He is a former smoker. He occasionally drinks a beer. He is . He has 2 children of his own. He is a full code. FAMILY HISTORY: Significant for hypertension and diabetes. CURRENT MEDICATIONS: Include; 1. Levemir FlexPen 20 units twice daily. 2. Metoprolol extended release 50 mg daily. 3. Atorvastatin 40 mg daily. 4. Neurontin 400 mg t.i.d. 5. Warfarin 5 mg daily. 6. Amlodipine 10 mg daily. 7. Hydralazine 100 mg twice a day. 8. Metformin 500 mg twice daily. 9. Furosemide 40 mg twice daily. PHYSICAL EXAMINATION: GENERAL: He is alert and oriented. He appears to be in no acute distress. He is well developed and well nourished. VITAL SIGNS: Blood pressure was 160/87, heart rate 90, respiratory rate of 22, temperature is 97.7 HEENT: Pupils are equal, round, and reactive. Extraocular muscles are intact. Sclerae anicteric. Throat, no erythema, no exudates. NECK: He does have distended neck veins. No adenopathy. No bruits. LUNGS: He has bilateral rales most of the way up. No wheezing. No rhonchi. CARDIOVASCULAR: He has a normal S1, S2. I did not appreciate an S3 or S4. No murmurs, clicks, or rubs. ABDOMEN: Distended, nontender. Positive for bowel sounds. There is no rebound no guarding. EXTREMITIES: He has 2+ pitting edema up to the thigh. He also has some chronic venous stasis changes. NEUROLOGIC: Muscle strength is 5/5 in both his upper and lower extremities. It is basically nonfocal. SKIN AND INTEGUMENT: No skin changes. No rash. LABORATORY DATA: White blood cell count is 7.3, hemoglobin 10.4, hematocrit is 33.3, and platelet count is 189. Sodium 140, potassium 4.6, chloride is 106, CO2 is 26, BUN 22, creatinine 1.64, glucose is 229. Urinalysis is negative. Troponin is 0.01. His EKG, sinus rhythm, the rate is 86, and there are no specific ST wave changes. His chest x-ray, he has cardiomegaly as well as increased pulmonary vascular markings and some blunting of the left costophrenic angle, possibly representing an effusion or infiltrate and this is also by my reading. ASSESSMENT: This is a 58-year-old gentleman, who presents with; 1. Progressive dyspnea on exertion as well as PND and orthopnea. He has changes suggestive of heart failure, both clinically and radiographically. He will be admitted. As I suspect, it will take more than 2 midnights for him to improve. He will be placed on IV diuretics and we will also repeat an echocardiogram. It does not appear that he has seen a dot etcher recently. Therefore, we will also consult Cardiology to aid in his management. 2. Hypertension. We will need to reconcile and restart his blood pressure medications. Also place him on p.r.n. medicines as needed. 3. History of deep vein thrombosis. We will need to check a PT and INR and continue his Coumadin. 4. Diabetes mellitus. Continue the Levemir as well as a sliding scale insulin. Job ID: [id number]
[2019-06-03 04:37] LABS: #Eosinphils 0.1 thou/uL (0.0-0.7); #Lymphocytes 1.3 thou/uL (1.20-3.40); #Monocytes 0.6 thou/uL (0.11-0.59); %Basophils 0.5 % (0.0-1.0); %Eosinophils 1.4 % (0.0-10.0); %Lymphocytes 18.8 % (21.0-51.0); %Monocytes 8.4 % (0.0-10.0); Hemoglobin 9.8 g/dL (14.0-18.0); Mean Corpuscular HGB CONC 31.8 g/dL (32.0-36.0); Mean Corpuscular Hemoglobin 30.3 pg (27.0-31.0); Mean Corpuscular Volume 95.2 fL (78.0-98.0); Mean Platelet Volume 9.1 fL (7.4-10.4); Platelet Count 180 thou/uL (130-400); RBC Distribution Width 13.1 % (11.5-14.5); Red Blood Cell (RBC) Count 3.25 mill/uL (4.70-6.10)
[2019-06-03 04:41] LABS: INR-International Normal Ratio 1.6; Prothrombin Time 19.1 SEC (12.0-14.7)
[2019-06-03 05:01] LABS: Anion Gap 9 mmol/L (10-20); BUN (Urea Nitrogen) 21 mg/dL (8.4-25.7); Calc. Creatinine Clearance 77 mL/min (70-130); Calcium 9.2 mg/dL (7.8-10.44); Carbon Dioxide 32 mmol/L (22-29); Chloride 104 mmol/L (98-107); Estimated GFR-MDRD 51; Glucose 163 mg/dL (70-105); Potassium 4.4 mmol/L (3.5-5.1); Sodium 141 mmol/L (136-145)
[2019-06-03] MEDS ORDERED: Sodium Chloride 0.9% 10 ML ONE (05:14)
[2019-06-03] MEDS: Furosemide 40 MG/4 ML VIAL SLOW IVP SCH ×2 (05:58→15:14)
[2019-06-03] MEDS ORDERED: Amlodipine 10 MG TAB PO SCH (11:15)
[2019-06-03 15:06] LABS: Hemoglobin 10.1 g/dL (14.0-18.0); Platelet Count 178 thou/uL (130-400)
[2019-06-03] MEDS: Gabapentin 400 MG CAP PO SCH ×2 (15:14→21:09)
--- NOTE | 2019-06-03 16:00 | PDOC.HOSPP ---
- Subjective Encounter Date: 06/03/19 Encounter Time: 15:58 Subjective: Mr. Bustamante was seen today in follow-up of CHF exacerbation. He is breathing better. He denies chest pain or dyspnea. - Objective Vital Signs & Weight: Vital Signs (12 hours) Temp Pulse Pulse Pulse Resp BP BP 06/03/19 15:10 97.6 F 89 16 06/03/19 11:52 87 18 06/03/19 11:43 88 06/03/19 09:50 84 88 181/89 H 174/82 H 06/03/19 08:52 88 18 06/03/19 08:20 06/03/19 06:51 06/03/19 04:00 98.4 F 86 20 BP Pulse Ox 06/03/19 15:10 172/89 H 94 L 06/03/19 11:52 179/90 H 92 L 06/03/19 11:43 06/03/19 09:50 06/03/19 08:52 180/94 H 99 06/03/19 08:20 98 06/03/19 06:51 95 06/03/19 04:00 155/83 H 95 Weight Weight 252 lb 12.8 oz I&O: 06/02/19 06/03/19 06/04/19 06:59 06:59 06:59 Intake Total 480 Output Total 1000 Balance -520 Result Diagrams: 06/03/19 14:49 06/03/19 03:41 Additional Labs: Accuchecks 06/03/19 10:44 POC Glucose 170 H Hospitalist ROS - Medication Medications: Active Medications Generic Name Dose Route Start Last Admin Trade Name Kenn PRN Reason Stop Dose Admin Acetaminophen 650 mg 06/02/19 21:03 06/03/19 00:12 Tylenol PO 650 mg Q4H PRN Administration Headache/Fever/Mild Pain (1-3) Diphenhydramine HCl 25 mg 06/02/19 22:07 06/03/19 00:12 Benadryl PO 25 mg Q6H PRN Administration Itching & Insomnia Furosemide 40 mg 06/03/19 06:00 06/03/19 15:14 Lasix SLOW IVP 40 mg 0600,1400 ARPAN Administration Gabapentin 400 mg 06/03/19 15:00 06/03/19 15:14 Neurontin PO 400 mg TID ARPAN Administration - Exam Eye: PERRL, anicteric sclera Heart: RRR, no murmur, no gallops, no rubs, normal peripheral pulses Respiratory: no wheezes, no ronchi, normal chest expansion, rales (bilateral left>right) Gastrointestinal: soft, non-tender, non-distended, normal bowel sounds, no palpable masses, no hepatomegaly, no splenomegaly Extremities: no clubbing, 2+ LE edema (+ massive bilateral lower extremity edema ) Hosp A/P (1) Acute on chronic diastolic heart failure Code(s): I50.33 - ACUTE ON CHRONIC DIASTOLIC (CONGESTIVE) HEART FAILURE Status : Acute (2) Diabetes mellitus type 2, insulin dependent Code(s): E11.9 - TYPE 2 DIABETES MELLITUS WITHOUT COMPLICATIONS; Z79.4 - PRINT WASHER (CURRENT) USE OF INSULIN Status: Acute (3) Hypertension Code(s): I10 - ESSENTIAL (PRIMARY) HYPERTENSION Status: Acute (4) CKD stage 2 due to type 2 diabetes mellitus Code(s): E11.22 - TYPE 2 DIABETES MELLITUS W DIABETIC CHRONIC KIDNEY DISEASE; N18.2 - CHRONIC KIDNEY DISEASE, STAGE 2 (MILD) Status: Chronic - Plan * Acute on chronic diastolic heart failure- continue IV Lasix * repeat Echo is pending- but suspect this is due to medical non-compliance * HTN- blood pressure is elevated- will restart his home medications * DM- blood glucose is stable
[2019-06-03] MEDS ORDERED: Warfarin Sodium 5 MG TAB PO SCH (17:00)
--- NOTE | 2019-06-03 17:22 | CON ---
DATE OF CONSULTATION: 06/03/2019 REASON FOR CONSULTATION: Shortness of breath, diastolic heart failure. HISTORY OF PRESENT ILLNESS: Mr. Bustamante is a pleasant 58-year-old gentleman who comes to the hospital for increased shortness of breath. He states this has happened several times in the past. He gets severely more short of breath, develops what appears to be pulmonary edema, has to be on Lasix, and feels better and goes home. He apparently lost his medications recently and has not been on any Lasix or any blood pressure medicine, so he had to come in when his shortness of breath got worse. He is currently volume overload, had to be placed on oxygen and is getting IV diuresis. He denies any chest pain, tightness, pressure, or shortness of breath. PAST MEDICAL HISTORY: 1. Type 2 diabetes. 2. Hyperlipidemia. 3. Hypertension. 4. Chronic diastolic heart failure. 5. Chronic DVTs and chronic anticoagulation on Coumadin. PAST SURGICAL HISTORY: IVC filter placement. ALLERGIES: NO KNOWN DRUG ALLERGIES. OUTPATIENT MEDICATIONS: 1. Levemir 20 units b.i.d. 2. Metoprolol succinate 50 mg a day. 3. Atorvastatin 40 mg a day. 4. Neurontin 400 mg t.i.d. 5. Warfarin 5 mg a day. 6. Amlodipine 10 mg a day. 7. Hydralazine 100 mg twice a day. 8. Metformin 500 mg twice a day. 9. Furosemide 40 mg twice a day. FAMILY HISTORY: Hypertension, otherwise noncontributory. SOCIAL HISTORY: Former smoker. Occasional alcohol use, a beer here and there. No drug use. REVIEW OF SYSTEMS: A 12-point review of systems was done and was all negative unless stated in the history of present illness. PHYSICAL EXAMINATION: VITAL SIGNS: Temperature 97.6, pulse 89, respiratory rate 16, saturating 94% on room air, and blood pressure 172/89 but has been in the 180s to upper 170s. GENERAL: Awake, alert, oriented x3, in no distress. HEENT: Normocephalic and atraumatic. NECK: Supple. LUNGS: Have crackles at the bilateral bases. CARDIOVASCULAR: S1 and S2. No S4. No murmurs or rubs. There is a positive S3. ABDOMEN: Soft. Positive bowel sounds. EXTREMITIES: 3+ edema bilaterally, worse on the left leg. SKIN: Warm and dry. LABORATORY DATA: Laboratory work was reviewed. CBC with a white count of 7, hemoglobin of 10, hematocrit 33, and platelet count of 189. Coags with an INR of 1.6, which would go with his noncompliance with his medications as he states he lost them. Chemistry; creatinine 1.66, GFR of 51. Troponin negative x3. BNP of 72. UA with 1+ blood, 4 to 6 red cells, no white cells, 1+ bacteria. ASSESSMENT: 1. Acute on chronic diastolic heart failure. 2. Noncompliance. 3. Hypertension, poorly controlled. PLAN: 1. We will restart some of his home medications. We will restart his hydralazine 100 b.i.d. 2. I will start him on low-dose LEATHA inhibitor as well. 3. Continue IV Lasix to try to get his lungs clear. 4. If he continues to be short of breath, we would consider Pulmonary consultation, just to make sure this is not aspiration pneumonia or pneumonitis. 5. Disposition: a. Restart hydralazine per home medication. b. Add lisinopril 5 mg a day. c. We need to control his blood pressure. d. IV Lasix. 6. We will follow. Job ID: [id number]
[2019-06-03] MEDS ORDERED: INSULIN DETEMIR 20 UNIT SQ SCH (21:00)
[2019-06-03] MEDS: Atorvastatin Calcium 40 MG TAB PO SCH (21:09)
[2019-06-03] MEDS: Insulin Glargine 20 UNITS in Pre-Filled Syringe 1 EACH SC SCH (21:09)
[2019-06-04 04:26] LABS: INR-International Normal Ratio 1.4; Prothrombin Time 17.4 SEC (12.0-14.7)
[2019-06-04 04:45] LABS: Anion Gap 11 mmol/L (10-20); BUN (Urea Nitrogen) 22 mg/dL (8.4-25.7); Calc. Creatinine Clearance 75 mL/min (70-130); Calcium 9.4 mg/dL (7.8-10.44); Carbon Dioxide 33 mmol/L (22-29); Chloride 101 mmol/L (98-107); Estimated GFR-MDRD 50; Glucose 206 mg/dL (70-105); Potassium 4.5 mmol/L (3.5-5.1); Sodium 140 mmol/L (136-145)
[2019-06-04] MEDS: Furosemide 40 MG/4 ML VIAL SLOW IVP SCH ×2 (05:43→14:44)
[2019-06-04] MEDS: hydrALAZINE 25 MG TAB PO SCH ×2 (08:42→20:42)
[2019-06-04] MEDS: Amlodipine 10 MG TAB PO SCH (08:42)
[2019-06-04] MEDS: Gabapentin 400 MG CAP PO SCH ×3 (08:44→20:42)
[2019-06-04] MEDS: Insulin Glargine 20 UNITS in Pre-Filled Syringe 1 EACH SC SCH ×2 (08:45→20:42)
[2019-06-04] MEDS ORDERED: Lisinopril 5 MG TAB PO SCH (09:00)
--- NOTE | 2019-06-04 12:28 | PQF ---
CLINICAL DOCUMENTATION IMPROVEMENT CLARIFICATION FORM: ICD-10 Updated PLEASE DO AN ADDENDUM TO THE PROGRESS NOTE WITH ANY DOCUMENTATION UPDATES OR ADDITIONS AND CARRY THROUGH TO DC SUMMARY. THANK YOU. DATE: 06/07/19 ATTN: DR. NDIAYE Please exercise your independent, professional judgment in responding to the clarification form. Clinical indicators are provided on the bottom of this form for your review Please check appropriate box(s): [ x] Acute Respiratory Failure: [ x] with Hypoxia[ ] with Hypercapnia [ ] Acute On Chronic Respiratory Failure: [ ] with Hypoxia [ ] with Hypercapnia [ ] Acute Respiratory Failure due to: (etiology) [ ] Chronic Respiratory Failure only [ ] with Hypoxia [ ] with Hypercapnia [ ] Hypoxia [ x] Other diagnosis : this got resoved soon with diuresis [ ] Unable to determine In addition, please specify: Present on Admission (POA): [ x ] Yes [ ] No [ ] Unable to determine For continuity of documentation, please document condition throughout progress notes and discharge summary. Thank You. CLINICAL INDICATORS - SIGNS / SYMPTOMS / LABS ER NOTE: "HYPOXIC ON ARRIVAL" "JUGULAR VENOUS DISTENTION PRESENT" (ER NOTE 06/02) SAT 84 % ON ROOM AIR RR 22 CHEST XRAY (06/02): "CARDIOMEGALY AND MILD PULMONARY VASCULAR CONGESTION" RISKS: ACUTE ON CHRONIC DIASTOLIC CHF (HOSPITALIST NOTE 06/03 MEDICATION NONCOMPLIANCE (CONSULTATION NOTE 06/03) TREATMENT: DUONBES (ER) IV LASIX (ER-PRESENT 06/04) SUPPLEMENTAL O2 (INITIATED IN ER) TELEMETRY MONITORING (This form is maintained as a part of the permanent medical record) 2014 [employer]. All Rights Reserved [email or web address] [email or web address] Office: [phone] [facility]
--- NOTE | 2019-06-04 15:30 | PDOC.CPN ---
- Subjective Date: 06/04/19 Time: 15:29 Interval history: He is doing better. Still SOB. BP better controlled. - Review of Systems General: denies: fever/chills, weight/appetite/sleep changes, night sweats, fatigue Respiratory: reports: cough, shortness of breath. denies: congestion, exercise intolerance Cardiovascular: denies: chest pain, palpitation, edema, paroxysmal nocturnal dyspnea, orthopnea Gastrointestinal: denies: nausea, vomiting, diarrhea, constipation, abd pain, GI bleeding Musculoskeletal: denies: pain, tenderness, stiffness, swelling, arthritis/ arthralgias Neurological: denies: numbness, syncope, seizure, weakness - Objective Allergies/Adverse Reactions: Allergies Allergy/AdvReac Type Severity Reaction Status Date / Time No Known Allergies Allergy Verified 06/02/19 23:32 Visit Medications: Current Medications Acetaminophen (Tylenol) 650 mg PO Q4H PRN PRN Reason: Headache/Fever/Mild Pain (1-3) Last Admin: 06/03/19 00:12 Dose: 650 mg Amlodipine Besylate (Norvasc) 10 mg PO DAILY [facility] Last Admin: 06/04/19 08:42 Dose: 10 mg Atorvastatin Calcium (Lipitor) 40 mg PO HS [facility] Last Admin: 06/03/19 21:09 Dose: 40 mg Dextrose/Water (Dextrose 50%) 25 gm SLOW IVP PRN PRN PRN Reason: Hypoglycemia Diphenhydramine HCl (Benadryl) 25 mg PO Q6H PRN PRN Reason: Itching & Insomnia Last Admin: 06/03/19 21:09 Dose: 25 mg Furosemide (Lasix) 40 mg SLOW IVP 0600,1400 [facility] Last Admin: 06/04/19 14:44 Dose: 40 mg Gabapentin (Neurontin) 400 mg PO TID [facility] Last Admin: 06/04/19 14:44 Dose: 400 mg Glucagon (Glucagon) 1 mg IM PRN PRN PRN Reason: Hypoglycemia Hydralazine HCl (Apresoline) 10 mg SLOW IVP Q4H PRN PRN Reason: SBP > 180 and HR < 70 Hydralazine HCl (Apresoline) 100 mg PO BID [facility] Last Admin: 06/04/19 08:42 Dose: 100 mg Dextrose/Water (D5w) 1,000 mls @ 0 mls/hr IV .Q0M PRN PRN Reason: Hypoglycemia Insulin Glargine 20 units/ (Miscellaneous Medication) 0.2 mls @ 0 mls/hr SC BID [facility] Last Admin: 06/04/19 08:45 Dose: 0.2 mls Insulin Human Lispro (Humalog) 0 units SC .MODERATE SLIDING SC PRN PRN Reason: Moderate Correctional Scale Insulin Human Lispro (Humalog) 0 units SC .BEDTIME SLIDING SC PRN PRN Reason: Bedtime Correctional Scale Lisinopril (Zestril) 5 mg PO DAILY [facility] Last Admin: 06/04/19 08:44 Dose: 5 mg Metoprolol Succinate (Toprol Xl) 50 mg PO DAILY [facility] Last Admin: 06/04/19 08:44 Dose: 50 mg Ondansetron HCl (Zofran Odt) 4 mg PO Q6H PRN PRN Reason: Nausea/Vomiting Ondansetron HCl (Zofran) 4 mg IVP Q6H PRN PRN Reason: Nausea/Vomiting Warfarin Sodium (Coumadin) 7.5 mg PO 1700 [facility] Vital Signs & Weight: Vital Signs Temp Pulse Resp BP BP Pulse Ox 06/04/19 12:00 98.1 F 86 18 146/78 H 100 06/04/19 08:10 98 06/04/19 07:44 98.0 F 90 18 159/87 H 99 06/04/19 03:40 98 F 94 22 H 171/82 H 94 L Weight 250 lb 9.6 oz - Physical Exam General: alert & oriented x3, no apparent distress HEENT: mucus membranes moist Neck: supple neck, midline trachea Cardiac: regular rate and rhythm, no murmur, regular rate Lungs: clear to auscultation Neuro: grossly intact, coordination normal Abdomen: active bowel sounds, soft, non-tender Skin: clear Musculoskeletal: normal range of motion, no pain (2+ edema Bilat LE.) - Labs Result Diagrams: 06/03/19 14:49 06/04/19 03:33 Troponin/CKMB Troponin I Less than 0.010 ng/mL (< 0.028) 06/02/19 22:26 - Telemetry Sinus rhythms and dysrhythmias: sinus rhythm - Assessment/Plan Assessment/Plan: 1. Acute on chronic diastolic heart failure. 2. HTN 3. Non compliance 4. LVH PLAN: - Continue BP control. - Continue IV diuresis. - If we are able to get euvolemic and SOB continues he may need pulmonary work up as outpatient. - Will increase lisinopril to 10 mg dialy.
--- NOTE | 2019-06-04 15:57 | PDOC.HOSPP ---
- Subjective Encounter Date: 06/04/19 Encounter Time: 15:55 Subjective: Mr. Bustamante was seen today in follow-up of CHF exacerbation. He is breathing a bit better. He notes improvement in the swelling. - Objective Vital Signs & Weight: Vital Signs (12 hours) Temp Pulse Resp BP BP Pulse Ox 06/04/19 12:00 98.1 F 86 18 146/78 H 100 06/04/19 08:10 98 06/04/19 07:44 98.0 F 90 18 159/87 H 99 Weight Weight 250 lb 9.6 oz I&O: 06/03/19 06/04/19 06/05/19 06:59 06:59 06:59 Intake Total 1620 Output Total 3100 Balance -1480 Result Diagrams: 06/03/19 14:49 06/04/19 03:33 Additional Labs: Accuchecks 06/04/19 06/04/19 06/03/19 11:02 05:45 20:19 POC Glucose 192 H 194 H 203 H 06/03/19 16:51 POC Glucose 201 H Hospitalist ROS - Medication Medications: Active Medications Generic Name Dose Route Start Last Admin Trade Name Freq PRN Reason Stop Dose Admin Acetaminophen 650 mg 06/02/19 21:03 06/03/19 00:12 Tylenol PO 650 mg Q4H PRN Administration Headache/Fever/Mild Pain (1-3) Amlodipine Besylate 10 mg 06/04/19 09:00 06/04/19 08:42 Norvasc PO 10 mg DAILY ARPAN Administration Atorvastatin Calcium 40 mg 06/03/19 21:00 06/03/19 21:09 Lipitor PO 40 mg HS ARPAN Administration Diphenhydramine HCl 25 mg 06/02/19 22:07 06/03/19 21:09 Benadryl PO 25 mg Q6H PRN Administration Itching & Insomnia Furosemide 40 mg 06/03/19 06:00 06/04/19 14:44 Lasix SLOW IVP 40 mg 0600,1400 ARPAN Administration Gabapentin 400 mg 06/03/19 15:00 06/04/19 14:44 Neurontin PO 400 mg TID ARPAN Administration Hydralazine HCl 100 mg 06/04/19 09:00 06/04/19 08:42 Apresoline PO 100 mg BID ARPAN Administration Insulin Glargine 20 units/ 0.2 mls @ 0 mls/hr 06/03/19 21:00 06/04/19 08:45 Miscellaneous Medication SC 0.2 mls BID ARPAN Administration Metoprolol Succinate 50 mg 06/04/19 09:00 06/04/19 08:44 Toprol Xl PO 50 mg DAILY ARPAN Administration - Exam Eye: PERRL, anicteric sclera Heart: RRR, no murmur, no gallops, no rubs, normal peripheral pulses Respiratory: CTAB, no wheezes, no rales, no ronchi, normal chest expansion Gastrointestinal: soft, non-tender, non-distended, normal bowel sounds, no palpable masses, no hepatomegaly Extremities: no cyanosis, 1+ LE edema Hosp A/P (1) Acute on chronic diastolic heart failure Code(s): I50.33 - ACUTE ON CHRONIC DIASTOLIC (CONGESTIVE) HEART FAILURE Status : Acute (2) Diabetes mellitus type 2, insulin dependent Code(s): E11.9 - TYPE 2 DIABETES MELLITUS WITHOUT COMPLICATIONS; Z79.4 - SKILLED NURSING (CURRENT) USE OF INSULIN Status: Acute (3) Hypertension Code(s): I10 - ESSENTIAL (PRIMARY) HYPERTENSION Status: Acute (4) CKD stage 2 due to type 2 diabetes mellitus Code(s): E11.22 - TYPE 2 DIABETES MELLITUS W DIABETIC CHRONIC KIDNEY DISEASE; N18.2 - CHRONIC KIDNEY DISEASE, STAGE 2 (MILD) Status: Chronic - Plan * Acute on chronic diastolic heart failure- continue IV Lasix-he is diuresing well * Echo does not demonstrate any significant changes from the previous * Briefly discussed dietary recommendations, and the importance of compliance * HTN- blood pressure is elevated- Lisinopril has been added and the dose has been increased * DM- blood glucose is stable * He likely need 1-2 more days in the hospital
[2019-06-04] MEDS: Warfarin Sodium 7.5 MG TAB PO SCH (17:03)
[2019-06-04] MEDS: Atorvastatin Calcium 40 MG TAB PO SCH (20:42)
[2019-06-05 05:06] LABS: INR-International Normal Ratio 1.4; Prothrombin Time 17.1 SEC (12.0-14.7)
[2019-06-05] MEDS: Furosemide 40 MG/4 ML VIAL SLOW IVP SCH ×2 (06:41→14:10)
[2019-06-05] MEDS: Amlodipine 10 MG TAB PO SCH (08:32)
[2019-06-05] MEDS: Lisinopril 10 MG TAB PO SCH (08:32)
[2019-06-05] MEDS: hydrALAZINE 25 MG TAB PO SCH ×2 (08:33→20:16)
[2019-06-05] MEDS: Gabapentin 400 MG CAP PO SCH ×3 (08:35→20:17)
[2019-06-05] MEDS: Insulin Glargine 20 UNITS in Pre-Filled Syringe 1 EACH SC SCH ×2 (08:35→20:17)
--- NOTE | 2019-06-05 11:49 | PDOC.CPN ---
- Subjective Date: 06/05/19 Time: 11:45 Interval history: No current complaints except he is hungry. Pt very angry. Pt with potato chips in the room becaue he did not get enough to eat - Review of Systems General: reports: fatigue. denies: fever/chills, weight/appetite/sleep changes , night sweats Respiratory: reports: cough, shortness of breath, exercise intolerance Cardiovascular: reports: paroxysmal nocturnal dyspnea, orthopnea Gastrointestinal: denies: nausea, vomiting, diarrhea, constipation, abd pain, GI bleeding Musculoskeletal: denies: pain, tenderness, stiffness, swelling, arthritis/ arthralgias Neurological: denies: numbness, syncope, seizure, weakness - Objective Allergies/Adverse Reactions: Allergies Allergy/AdvReac Type Severity Reaction Status Date / Time No Known Allergies Allergy Verified 06/02/19 23:32 Visit Medications: Current Medications Acetaminophen (Tylenol) 650 mg PO Q4H PRN PRN Reason: Headache/Fever/Mild Pain (1-3) Last Admin: 06/03/19 00:12 Dose: 650 mg Amlodipine Besylate (Norvasc) 10 mg PO DAILY [facility] Last Admin: 06/05/19 08:32 Dose: 10 mg Atorvastatin Calcium (Lipitor) 40 mg PO HS [facility] Last Admin: 06/04/19 20:42 Dose: 40 mg Carvedilol (Coreg) 25 mg PO BID-[facility] Dextrose/Water (Dextrose 50%) 25 gm SLOW IVP PRN PRN PRN Reason: Hypoglycemia Diphenhydramine HCl (Benadryl) 25 mg PO Q6H PRN PRN Reason: Itching & Insomnia Last Admin: 06/03/19 21:09 Dose: 25 mg Furosemide (Lasix) 40 mg SLOW IVP 0600,1400 [facility] Last Admin: 06/05/19 06:41 Dose: 40 mg Gabapentin (Neurontin) 400 mg PO TID [facility] Last Admin: 06/05/19 08:35 Dose: 400 mg Glucagon (Glucagon) 1 mg IM PRN PRN PRN Reason: Hypoglycemia Hydralazine HCl (Apresoline) 10 mg SLOW IVP Q4H PRN PRN Reason: SBP > 180 and HR < 70 Hydralazine HCl (Apresoline) 100 mg PO BID [facility] Last Admin: 06/05/19 08:33 Dose: 100 mg Dextrose/Water (D5w) 1,000 mls @ 0 mls/hr IV .Q0M PRN PRN Reason: Hypoglycemia Insulin Glargine 20 units/ (Miscellaneous Medication) 0.2 mls @ 0 mls/hr SC BID [facility] Last Admin: 06/05/19 08:35 Dose: 0.2 mls Insulin Human Lispro (Humalog) 0 units SC .MODERATE SLIDING SC PRN PRN Reason: Moderate Correctional Scale Insulin Human Lispro (Humalog) 0 units SC .BEDTIME SLIDING SC PRN PRN Reason: Bedtime Correctional Scale Isosorbide Dinitrate (Isordil) 5 mg PO BID [facility] Lisinopril (Zestril) 10 mg PO DAILY [facility] Last Admin: 06/05/19 08:32 Dose: 10 mg Ondansetron HCl (Zofran Odt) 4 mg PO Q6H PRN PRN Reason: Nausea/Vomiting Ondansetron HCl (Zofran) 4 mg IVP Q6H PRN PRN Reason: Nausea/Vomiting Warfarin Sodium (Coumadin) 7.5 mg PO 1700 [facility] Last Admin: 06/04/19 17:03 Dose: 7.5 mg Vital Signs & Weight: Vital Signs Temp Pulse Resp BP Pulse Ox 06/05/19 11:10 97.8 F 89 18 136/66 95 06/05/19 08:27 97.6 F 83 16 161/85 H 95 06/05/19 04:21 97 06/05/19 03:43 97.1 F L 85 16 159/80 H 97 Weight 249 lb - Physical Exam General: alert & oriented x3, appears well HEENT: mucus membranes moist Cardiac: regular rate and rhythm Lungs: no wheezes, bibasilar rales Neuro: grossly intact Abdomen: soft, non-tender Musculoskeletal: other (Bilateral MARCELINO) - Labs Result Diagrams: 06/03/19 14:49 06/04/19 03:33 Troponin/CKMB Troponin I Less than 0.010 ng/mL (< 0.028) 06/02/19 22:26 - Telemetry Sinus rhythms and dysrhythmias: sinus rhythm - Assessment/Plan Assessment/Plan: 1. Acute on chronic diastolic heart failure. 2. HTN 3. Non compliance with diet 4. LVH 5. Hx multiple DVTs s/p IVC filter placement BP remains elevated. Change Toprol to Coreg. Add Isordil. Continue hydralazine. Diurese. Patient admits to noncompliance with diet/sodium intake at home. Will try to arrange nutritional counseling for when she is present. RG Pt seen and examined Will make attempts at controlling BP while in the hospital but very concerned about compliance issues at home
--- NOTE | 2019-06-05 12:59 | PDOC.HOSPP ---
- Subjective Encounter Date: 06/05/19 Encounter Time: 10:30 Subjective: no sob, is ambulating with cardiac rehab no chest pain/palp - Objective Vital Signs & Weight: Vital Signs (12 hours) Temp Pulse Pulse Pulse Resp BP BP 06/05/19 11:10 97.8 F 89 18 06/05/19 10:57 92 86 156/74 H 140/74 06/05/19 08:27 97.6 F 83 16 06/05/19 04:21 06/05/19 03:43 97.1 F L 85 16 BP Pulse Ox 06/05/19 11:10 136/66 95 06/05/19 10:57 06/05/19 08:27 161/85 H 95 06/05/19 04:21 97 06/05/19 03:43 159/80 H 97 Weight Weight 249 lb I&O: 06/04/19 06/05/19 06/06/19 06:59 06:59 06:59 Intake Total 1620 1460 Output Total 3100 1775 Balance -1480 -315 Result Diagrams: 06/03/19 14:49 06/04/19 03:33 Additional Labs: Accuchecks 06/05/19 06/05/19 06/05/19 11:15 05:21 01:58 POC Glucose 188 H 208 H 203 H 06/04/19 06/04/19 06/03/19 20:24 16:51 05:28 POC Glucose 254 H 156 H 176 H 06/02/19 21:02 POC Glucose 164 H Hospitalist ROS - Medication Medications: Active Medications Generic Name Dose Route Start Last Admin Trade Name Cameronq PRN Reason Stop Dose Admin Acetaminophen 650 mg 06/02/19 21:03 06/03/19 00:12 Tylenol PO 650 mg Q4H PRN Administration Headache/Fever/Mild Pain (1-3) Amlodipine Besylate 10 mg 06/04/19 09:00 06/05/19 08:32 Norvasc PO 10 mg DAILY ARPAN Administration Atorvastatin Calcium 40 mg 06/03/19 21:00 06/04/19 20:42 Lipitor PO 40 mg HS ARPAN Administration Diphenhydramine HCl 25 mg 06/02/19 22:07 06/03/19 21:09 Benadryl PO 25 mg Q6H PRN Administration Itching & Insomnia Furosemide 40 mg 06/03/19 06:00 06/05/19 06:41 Lasix SLOW IVP 40 mg 0600,1400 ARP[facility] Administration Gabapentin 400 mg 06/03/19 15:00 06/05/19 08:35 Neurontin PO 400 mg TID ARPAN Administration Hydralazine HCl 100 mg 06/04/19 09:00 06/05/19 08:33 Apresoline PO 100 mg BID [facility]PAN Administration Insulin Glargine 20 units/ 0.2 mls @ 0 mls/hr 06/03/19 21:00 06/05/19 08:35 Miscellaneous Medication SC 0.2 mls BID ARPAN Administration Lisinopril 10 mg 06/05/19 09:00 06/05/19 08:32 Zestril PO 10 mg DAILY ARPAN Administration Warfarin Sodium 7.5 mg 06/04/19 17:00 06/04/19 17:03 Coumadin PO 7.5 mg 1700 [facility]PAN Administration - Exam General Appearance: NAD, awake alert Eye: PERRL, anicteric sclera ENT: no oropharyngeal lesions, moist mucosa Neck: supple, no JVD Heart: RRR, no murmur Respiratory: no wheezes, rales Gastrointestinal: soft, non-tender, non-distended, normal bowel sounds Extremities: no cyanosis, 2+ LE edema Neurological: cranial nerve grossly intact, no focal deficits Psychiatric: normal affect, A&O x 3 Hosp A/P (1) Acute on chronic diastolic heart failure Code(s): I50.33 - ACUTE ON CHRONIC DIASTOLIC (CONGESTIVE) HEART FAILURE Status : Acute (2) CKD (chronic kidney disease) stage 3, GFR 30-59 ml/min Code(s): N18.3 - CHRONIC KIDNEY DISEASE, STAGE 3 (MODERATE) Status: Chronic (3) Obesity (BMI 30-39.9) Code(s): E66.9 - OBESITY, UNSPECIFIED Status: Chronic (4) Dyslipidemia Code(s): E78.5 - HYPERLIPIDEMIA, UNSPECIFIED Status: Chronic (5) Anemia Code(s): D64.9 - ANEMIA, UNSPECIFIED Status: Chronic (6) DVT (deep venous thrombosis) Code(s): I82.409 - ACUTE EMBOLISM AND THOMBOS UNSP DEEP VN UNSP LOWER EXTREMITY Status: Chronic (7) Diabetes mellitus type 2, insulin dependent Code(s): E11.9 - TYPE 2 DIABETES MELLITUS WITHOUT COMPLICATIONS; Z79.4 - COMPUTER TRAINER (CURRENT) USE OF INSULIN Status: Chronic (8) Hypertension Code(s): I10 - ESSENTIAL (PRIMARY) HYPERTENSION Status: Chronic Qualifiers: Hypertension type: essential hypertension Qualified Code(s): I10 - Essential (primary) hypertension - Plan continue lasix, still has edema in his lower extremities meds are slowly titrated, is on coreg, lisinopril, hydralazine, norvasc and lipitor hemostable scar [place] dc plan in 24hrs last EF was 55% watch for renal function
--- NOTE | 2019-06-05 14:56 | EKG ---
Test Reason : Blood Pressure : / mmHG Vent. Rate : 086 BPM Atrial Rate : 086 BPM P-R Int : 120 ms QRS Dur : 098 ms QT Int : 372 ms P-R-T Axes : 030 -16 073 degrees QTc Int : 445 ms Normal sinus rhythm Normal ECG Confirmed by LYNDSAY TORRES M.D. ([id number]), map editor LOC JONES ([id number]) on 06/05/2019 2:56:18 PM Referred By: Confirmed By:LYNDSAY TORRES M.D.
[2019-06-05] MEDS: Carvedilol 25 MG TAB PO SCH (16:26)
[2019-06-05] MEDS: Warfarin Sodium 7.5 MG TAB PO SCH (16:27)
[2019-06-05] MEDS: Acetaminophen 325 MG TAB PO PRN (20:16)
[2019-06-05] MEDS: Isosorbide Dinitrate 5 MG TAB PO SCH (20:17)
[2019-06-05] MEDS: Atorvastatin Calcium 40 MG TAB PO SCH (20:17)
[2019-06-06 05:25] LABS: INR-International Normal Ratio 1.6; Prothrombin Time 18.5 SEC (12.0-14.7)
[2019-06-06] MEDS: Furosemide 40 MG/4 ML VIAL SLOW IVP SCH (05:33)
[2019-06-06] MEDS: Isosorbide Dinitrate 5 MG TAB PO SCH ×2 (08:35→21:06)
[2019-06-06] MEDS: Carvedilol 25 MG TAB PO SCH ×2 (08:35→17:38)
[2019-06-06] MEDS: Amlodipine 10 MG TAB PO SCH (08:35)
[2019-06-06] MEDS: Lisinopril 10 MG TAB PO SCH (08:35)
[2019-06-06] MEDS: Gabapentin 400 MG CAP PO SCH ×3 (08:35→20:19)
[2019-06-06] MEDS: hydrALAZINE 25 MG TAB PO SCH ×2 (08:35→20:19)
[2019-06-06] MEDS: Insulin Glargine 20 UNITS in Pre-Filled Syringe 1 EACH SC SCH ×2 (08:36→20:19)
[2019-06-06 09:22] LABS: Anion Gap 10 mmol/L (10-20); BUN (Urea Nitrogen) 28 mg/dL (8.4-25.7); Calc. Creatinine Clearance 63 mL/min (70-130); Calcium 9.3 mg/dL (7.8-10.44); Carbon Dioxide 36 mmol/L (22-29); Chloride 100 mmol/L (98-107); Estimated GFR-MDRD 41; Glucose 131 mg/dL (70-105); Potassium 4.7 mmol/L (3.5-5.1); Sodium 141 mmol/L (136-145)
--- NOTE | 2019-06-06 11:05 | PDOC.CPN ---
- Subjective Date: 06/06/19 Time: 11:07 Interval history: Patient without complaint. Sleeping and asks to not be disturbed. - Review of Systems General: denies: fever/chills, weight/appetite/sleep changes, night sweats, fatigue Respiratory: denies: cough, congestion, shortness of breath, exercise intolerance Cardiovascular: denies: chest pain, palpitation, edema, paroxysmal nocturnal dyspnea, orthopnea Gastrointestinal: denies: nausea, vomiting, diarrhea, constipation, abd pain, GI bleeding Musculoskeletal: denies: pain, tenderness, stiffness, swelling, arthritis/ arthralgias Neurological: denies: numbness, syncope, seizure, weakness - Objective Allergies/Adverse Reactions: Allergies Allergy/AdvReac Type Severity Reaction Status Date / Time No Known Allergies Allergy Verified 06/02/19 23:32 Visit Medications: Current Medications Acetaminophen (Tylenol) 650 mg PO Q4H PRN PRN Reason: Headache/Fever/Mild Pain (1-3) Last Admin: 06/05/19 20:16 Dose: 650 mg Amlodipine Besylate (Norvasc) 10 mg PO DAILY [facility] Last Admin: 06/06/19 08:35 Dose: 10 mg Atorvastatin Calcium (Lipitor) 40 mg PO HS [facility] Last Admin: 06/05/19 20:17 Dose: 40 mg Carvedilol (Coreg) 25 mg PO BID-WM [facility] Last Admin: 06/06/19 08:35 Dose: 25 mg Dextrose/Water (Dextrose 50%) 25 gm SLOW IVP PRN PRN PRN Reason: Hypoglycemia Diphenhydramine HCl (Benadryl) 25 mg PO Q6H PRN PRN Reason: Itching & Insomnia Last Admin: 06/03/19 21:09 Dose: 25 mg Furosemide (Lasix) 40 mg SLOW IVP 0600,1400 [facility] Last Admin: 06/06/19 05:33 Dose: 40 mg Gabapentin (Neurontin) 400 mg PO TID [facility] Last Admin: 06/06/19 08:35 Dose: 400 mg Glucagon (Glucagon) 1 mg IM PRN PRN PRN Reason: Hypoglycemia Hydralazine HCl (Apresoline) 10 mg SLOW IVP Q4H PRN PRN Reason: SBP > 180 and HR < 70 Hydralazine HCl (Apresoline) 100 mg PO BID [facility] Last Admin: 06/06/19 08:35 Dose: 100 mg Dextrose/Water (D5w) 1,000 mls @ 0 mls/hr IV .Q0M PRN PRN Reason: Hypoglycemia Insulin Glargine 20 units/ (Miscellaneous Medication) 0.2 mls @ 0 mls/hr SC BID [facility] Last Admin: 06/06/19 08:36 Dose: 0.2 mls Insulin Human Lispro (Humalog) 0 units SC .MODERATE SLIDING SC PRN PRN Reason: Moderate Correctional Scale Last Admin: 06/05/19 17:48 Dose: 6 units Insulin Human Lispro (Humalog) 0 units SC .BEDTIME SLIDING SC PRN PRN Reason: Bedtime Correctional Scale Isosorbide Dinitrate (Isordil) 5 mg PO BID [facility] Last Admin: 06/06/19 08:35 Dose: 5 mg Lisinopril (Zestril) 10 mg PO DAILY [facility] Last Admin: 06/06/19 08:35 Dose: 10 mg Ondansetron HCl (Zofran Odt) 4 mg PO Q6H PRN PRN Reason: Nausea/Vomiting Ondansetron HCl (Zofran) 4 mg IVP Q6H PRN PRN Reason: Nausea/Vomiting Warfarin Sodium (Coumadin) 7.5 mg PO 1700 [facility] Last Admin: 06/05/19 16:27 Dose: 7.5 mg Vital Signs & Weight: Vital Signs Temp Pulse Resp BP BP Pulse Ox 06/06/19 08:25 98.4 F 97 18 162/79 H 97 06/06/19 08:00 97 06/06/19 04:00 99 16 139/73 94 L 06/06/19 00:00 99 16 142/67 H Weight 252 lb 9.6 oz - Physical Exam General: appears well HEENT: mucus membranes moist Neck: supple neck Cardiac: regular rate and rhythm, no murmur Lungs: clear to auscultation Abdomen: unremarkable, non-tender - Labs Result Diagrams: 06/03/19 14:49 06/06/19 08:50 Troponin/CKMB Troponin I Less than 0.010 ng/mL (< 0.028) 06/02/19 22:26 - Assessment/Plan Assessment/Plan: 1. Acute on chronic diastolic heart failure. 2. HTN 3. Non compliance with diet 4. LVH 5. Hx multiple DVTs s/p IVC filter placement 6. LUCINDA BP improved. Cr elevated. Will hold lasix.
--- NOTE | 2019-06-06 11:50 | PDOC.HOSPP ---
- Subjective Encounter Date: 06/06/19 Encounter Time: 10:45 Subjective: still sleepy, wakes up to verbal stimuli not in distress - Objective Vital Signs & Weight: Vital Signs (12 hours) Temp Pulse Resp BP BP Pulse Ox 06/06/19 08:25 98.4 F 97 18 162/79 H 97 06/06/19 08:00 97 06/06/19 04:00 99 16 139/73 94 L 06/06/19 00:00 99 16 142/67 H Weight Weight 252 lb 9.6 oz I&O: 06/05/19 06/06/19 06/07/19 06:59 06:59 06:59 Intake Total 1460 1200 Output Total 1775 1200 Balance -315 0 Result Diagrams: 06/03/19 14:49 06/06/19 08:50 Additional Labs: Accuchecks 06/06/19 06/06/19 06/05/19 10:58 05:25 20:22 POC Glucose 115 H 233 H 257 H 06/05/19 06/05/19 16:34 11:15 POC Glucose 273 H 188 H Hospitalist ROS - Medication Medications: Active Medications Generic Name Dose Route Start Last Admin Trade Name Freq PRN Reason Stop Dose Admin Acetaminophen 650 mg 06/02/19 21:03 06/05/19 20:16 Tylenol PO 650 mg Q4H PRN Administration Headache/Fever/Mild Pain (1-3) Amlodipine Besylate 10 mg 06/04/19 09:00 06/06/19 08:35 Norvasc PO 10 mg DAILY [facility] Administration Atorvastatin Calcium 40 mg 06/03/19 21:00 06/05/19 20:17 Lipitor PO 40 mg HS [facility]PAN Administration Carvedilol 25 mg 06/05/19 17:00 06/06/19 08:35 Coreg PO 25 mg BID-WM [facility] Administration Diphenhydramine HCl 25 mg 06/02/19 22:07 06/03/19 21:09 Benadryl PO 25 mg Q6H PRN Administration Itching & Insomnia Gabapentin 400 mg 06/03/19 15:00 06/06/19 08:35 Neurontin PO 400 mg TID [facility]PAN Administration Hydralazine HCl 100 mg 06/04/19 09:00 06/06/19 08:35 Apresoline PO 100 mg BID [facility] Administration Insulin Glargine 20 units/ 0.2 mls @ 0 mls/hr 06/03/19 21:00 06/06/19 08:36 Miscellaneous Medication SC 0.2 mls BID [facility]PAN Administration Insulin Human Lispro 0 units 06/02/19 21:03 06/05/19 17:48 Humalog SC 6 units .MODERATE SLIDING SC PRN Administration Moderate Correctional Scale Isosorbide Dinitrate 5 mg 06/05/19 21:00 06/06/19 08:35 Isordil PO 5 mg BID [facility] Administration Lisinopril 10 mg 06/05/19 09:00 06/06/19 08:35 Zestril PO 10 mg DAILY [facility] Administration Warfarin Sodium 7.5 mg 06/04/19 17:00 06/05/19 16:27 Coumadin PO 7.5 mg 1700 [facility] Administration - Exam General Appearance: awake alert Eye: PERRL, anicteric sclera ENT: no oropharyngeal lesions, moist mucosa Neck: supple, no JVD Heart: RRR, no murmur Respiratory: no wheezes, no rales Gastrointestinal: soft, non-tender, non-distended, normal bowel sounds Extremities: no cyanosis, 1+ LE edema Neurological: cranial nerve grossly intact, no focal deficits Hosp A/P (1) Acute on chronic diastolic heart failure Code(s): I50.33 - ACUTE ON CHRONIC DIASTOLIC (CONGESTIVE) HEART FAILURE Status : Acute (2) CKD (chronic kidney disease) stage 3, GFR 30-59 ml/min Code(s): N18.3 - CHRONIC KIDNEY DISEASE, STAGE 3 (MODERATE) Status: Chronic (3) Obesity (BMI 30-39.9) Code(s): E66.9 - OBESITY, UNSPECIFIED Status: Chronic (4) Dyslipidemia Code(s): E78.5 - HYPERLIPIDEMIA, UNSPECIFIED Status: Chronic (5) Anemia Code(s): D64.9 - ANEMIA, UNSPECIFIED Status: Chronic (6) DVT (deep venous thrombosis) Code(s): I82.409 - ACUTE EMBOLISM AND THOMBOS UNSP DEEP VN UNSP LOWER EXTREMITY Status: Chronic (7) Diabetes mellitus type 2, insulin dependent Code(s): E11.9 - TYPE 2 DIABETES MELLITUS WITHOUT COMPLICATIONS; Z79.4 - ASSISTANT 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
[2019-06-06] MEDS: Warfarin Sodium 7.5 MG TAB PO SCH (17:38)
[2019-06-06] MEDS: Atorvastatin Calcium 40 MG TAB PO SCH (20:19)
[2019-06-06] MEDS: diphenhydrAMINE 25 MG CAP PO PRN (20:28)
[2019-06-07 05:20] LABS: INR-International Normal Ratio 1.6; Prothrombin Time 18.9 SEC (12.0-14.7)
[2019-06-07 05:28] LABS: Anion Gap 12 mmol/L (10-20); BUN (Urea Nitrogen) 29 mg/dL (8.4-25.7); Calc. Creatinine Clearance 68 mL/min (70-130); Calcium 9.3 mg/dL (7.8-10.44); Carbon Dioxide 32 mmol/L (22-29); Chloride 101 mmol/L (98-107); Estimated GFR-MDRD 45; Glucose 139 mg/dL (70-105); Potassium 4.9 mmol/L (3.5-5.1); Sodium 140 mmol/L (136-145)
[2019-06-07] MEDS: Gabapentin 400 MG CAP PO SCH ×2 (08:39→15:57)
[2019-06-07] MEDS: Isosorbide Dinitrate 5 MG TAB PO SCH (08:39)
[2019-06-07] MEDS: hydrALAZINE 25 MG TAB PO SCH (08:41)
[2019-06-07] MEDS: Lisinopril 10 MG TAB PO SCH (08:41)
[2019-06-07] MEDS: Carvedilol 25 MG TAB PO SCH ×2 (08:42→15:57)
[2019-06-07] MEDS: Amlodipine 10 MG TAB PO SCH (08:42)
[2019-06-07] MEDS: Insulin Glargine 20 UNITS in Pre-Filled Syringe 1 EACH SC SCH (09:47)
[2019-06-07] MEDS: Acetaminophen 325 MG TAB PO PRN (11:52)
[2019-06-07] MEDS: Warfarin Sodium 7.5 MG TAB PO SCH (15:57)
[2019-06-07 16:00] VITALS: BP 133/67; TEMP 97.4
--- NOTE | 2019-06-07 17:49 | PDOC.CPN ---
- Subjective Date: 06/07/19 Time: 12:00 Interval history: He is doing well. No chest pain, tightness, pressure. Breathing is back to baseline. - Review of Systems General: denies: fever/chills, weight/appetite/sleep changes, night sweats, fatigue Respiratory: denies: cough, congestion, shortness of breath, exercise intolerance Cardiovascular: denies: chest pain, palpitation, edema, paroxysmal nocturnal dyspnea, orthopnea Gastrointestinal: denies: nausea, vomiting, diarrhea, constipation, abd pain, GI bleeding Musculoskeletal: denies: pain, tenderness, stiffness, swelling, arthritis/ arthralgias Neurological: denies: numbness, syncope, seizure, weakness - Objective Allergies/Adverse Reactions: Allergies Allergy/AdvReac Type Severity Reaction Status Date / Time No Known Allergies Allergy Verified 06/02/19 23:32 Visit Medications: Current Medications Acetaminophen (Tylenol) 650 mg PO Q4H PRN PRN Reason: Headache/Fever/Mild Pain (1-3) Last Admin: 06/07/19 11:52 Dose: 650 mg Amlodipine Besylate (Norvasc) 10 mg PO DAILY [facility] Last Admin: 06/07/19 08:42 Dose: 10 mg Atorvastatin Calcium (Lipitor) 40 mg PO HS [facility] Last Admin: 06/06/19 20:19 Dose: 40 mg Carvedilol (Coreg) 25 mg PO BID-WM [facility] Last Admin: 06/07/19 15:57 Dose: 25 mg Dextrose/Water (Dextrose 50%) 25 gm SLOW IVP PRN PRN PRN Reason: Hypoglycemia Diphenhydramine HCl (Benadryl) 25 mg PO Q6H PRN PRN Reason: Itching & Insomnia Last Admin: 06/06/19 20:28 Dose: 25 mg Gabapentin (Neurontin) 400 mg PO TID [facility] Last Admin: 06/07/19 15:57 Dose: 400 mg Glucagon (Glucagon) 1 mg IM PRN PRN PRN Reason: Hypoglycemia Hydralazine HCl (Apresoline) 10 mg SLOW IVP Q4H PRN PRN Reason: SBP > 180 and HR < 70 Hydralazine HCl (Apresoline) 100 mg PO BID [facility] Last Admin: 06/07/19 08:41 Dose: 100 mg Dextrose/Water (D5w) 1,000 mls @ 0 mls/hr IV .Q0M PRN PRN Reason: Hypoglycemia Insulin Glargine 20 units/ (Miscellaneous Medication) 0.2 mls @ 0 mls/hr SC BID [facility] Last Admin: 06/07/19 09:47 Dose: 0.2 mls Insulin Human Lispro (Humalog) 0 units SC .MODERATE SLIDING SC PRN PRN Reason: Moderate Correctional Scale Last Admin: 06/05/19 17:48 Dose: 6 units Insulin Human Lispro (Humalog) 0 units SC .BEDTIME SLIDING SC PRN PRN Reason: Bedtime Correctional Scale Isosorbide Dinitrate (Isordil) 5 mg PO BID [facility] Last Admin: 06/07/19 08:39 Dose: 5 mg Lisinopril (Zestril) 10 mg PO DAILY [facility] Last Admin: 06/07/19 08:41 Dose: 10 mg Ondansetron HCl (Zofran Odt) 4 mg PO Q6H PRN PRN Reason: Nausea/Vomiting Ondansetron HCl (Zofran) 4 mg IVP Q6H PRN PRN Reason: Nausea/Vomiting Warfarin Sodium (Coumadin) 7.5 mg PO 1700 [facility] Last Admin: 06/07/19 15:57 Dose: 7.5 mg Vital Signs & Weight: Vital Signs Temp Pulse Resp BP Pulse Ox 06/07/19 15:58 97.4 F L 91 18 133/67 97 06/07/19 11:47 99.7 F H 94 20 131/64 97 06/07/19 09:00 97 06/07/19 08:35 98.4 F 100 20 153/80 H 83 L 06/07/19 08:00 97 06/07/19 07:12 97 Weight 254 lb 1.6 oz - Physical Exam General: alert & oriented x3, no apparent distress HEENT: mucus membranes moist Neck: supple neck Cardiac: regular rate and rhythm, no murmur Lungs: clear to auscultation Neuro: grossly intact Abdomen: active bowel sounds, soft, non-tender Skin: clear Musculoskeletal: normal range of motion, no pain - Labs Result Diagrams: 06/03/19 14:49 06/07/19 05:00 Troponin/CKMB Troponin I Less than 0.010 ng/mL (< 0.028) 06/02/19 22:26 - Telemetry Sinus rhythms and dysrhythmias: sinus rhythm - Assessment/Plan Assessment/Plan: 1. Acute on chronic diastolic heart failure. 2. HTN 3. Non compliance with diet 4. LVH 5. Hx multiple DVTs s/p IVC filter placement 6. LUCINDA PLAN: - Continue current meds as BP much better controlled. - CV stable, will sign off. please call with any questions.
--- NOTE | 2019-06-07 18:33 | DIS ---
DATE OF ADMISSION: 06/02/2019 DATE OF DISCHARGE: 06/07/2019 PRIMARY DISCHARGE DIAGNOSES: Acute on chronic diastolic heart failure, noncompliance with diet. SECONDARY DISCHARGE DIAGNOSES: 1. History of LVH. 2. 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 3. Chronic kidney disease stage 3. 4. Obesity. 5. Dyslipidemia. 6. Chronic anemia. 7. Diabetes mellitus type 2. PROCEDURES DONE DURING HOSPITALIZATION: The patient has had echo with 2D Doppler done which showed EF of 55% to 60%, grade 2/3 diastolic dysfunction, moderate concentric LVH. CT angio chest done on the day of admission showed no evidence of pulmonary artery embolus to the level of segmental arteries. Hemoglobin and hematocrit of 10 and 31, platelet count 178, MCV was 95. Discharge INR is 1.6. Discharge BUN and creatinine are 29 and 1.86. Troponin x3 negative. BNP was 72. Albumin 4.1. DISCHARGE MEDICATIONS: 1. Levemir 20 units subcu twice daily. 2. Norvasc 10 mg daily. 3. Atorvastatin 40 mg p.o. at bedtime. 4. Coreg 25 mg twice daily. 5. Lasix 40 mg daily. 6. Neurontin 400 mg p.o. 3 times daily. 7. Hydralazine 100 mg twice daily. 8. Isordil 5 mg twice daily. 9. Lisinopril 10 mg daily. 10. Coumadin 7.5 mg p.o. daily. ALLERGIES: NO KNOWN DRUG ALLERGIES. INPATIENT CONSULT: Dr. Gay for Cardiology. DISCHARGE PLAN: The patient to follow up with primary care physician in 1 week. He needs to follow up with Heart Failure clinic as advised. Primary care physician is Dr. Gopal Sierra and he needs to follow up with her on 06/10/2019 at 10:00 a.m. The patient also needs to follow up with Coumadin checks as before. BRIEF COURSE DURING HOSPITALIZATION: The patient initially got admitted on the with complaints of shortness of breath. He had known history of chronic diastolic heart failure and was noncompliant with medications. The patient also had moderate concentric LVH. He has had gentle diuresis done. The patient likely has chronic kidney disease stage 3 and his creatinine slowly scot up to 2, at which point diuresis was scaled back. His medications were optimized. The patient has been counseled to be more active when he goes home. Also, he was also counseled with regard to regular followups. All his medications have been faxed to his pharmacy. Please note, I have seen and examined the patient on the day of discharge. He has been cleared by Dr. Gay for discharge today. Please note, the patient is requiring oxygen. His room air saturations are 83% likely due to poor inspiratory effort and obesity. He would benefit from outpatient sleep study via his primary care physician. Job ID: [id number] MTDD
--- NOTE | 2019-06-08 23:15 | PQF ---
[employer] Winform Viewer NATHAN BRANDON VINAYA KUMAR MD [id number] CLINICAL DOCUMENTATION CLARIFICATION FORM: POST DISCHARGE Addendum to original discharge summary date: ____ Late entry note date: __ DATE: 06/08/19 ATTN: Amanda Cantrell Please exercise your independent, professional judgment in responding to the clarification form. Clinical indicators are provided on the bottom of this form for your review Can you please further specify the clinical significance of the below indicators ? Please check appropriate box(s): [ ] Acute Renal Failure (ARF) / Acute Kidney Injury (REX) [ x ] Acute on Chronic Renal Failure Stage 3 [ ] CKD without ARF/REX [ x] Other diagnosis please specify_secondary to diuresis during hospitalization [ ] Unable to determine In addition, please specify: Present on Admission (POA): [ ] Yes [ x] No [ ] Unable to determine National Kidney Foundation Guidelines for CKD Staging Stage I Kidney damage with normal or increased GFRGFR > 90 Stage IIKidney damage with mildly decreased GFRGFR 60-89 Stage III Kidney damage with moderately decreased GFRGFR 30-59 Stage IVKidney damage with severely decreased GFRGFR 16-29 Stage VKidney failureGFR<15 ESRDEnd Stage Renal DiseaseOn dialysis Acute Renal Failure/Acute Kidney Failure defined as: Increases in SCr by (>) 0.3 mg/dl within 48 hours OR- Increases in SCr by (>) 1.5 times baseline, known or presumed to have occurred within the prior 7 days OR- Urine volume < 0.5 ml/kg/hour for 6 hours (KDIGO supplement 2012 for RIFLE/JOSÉ MIGUEL criteria) For continuity of documentation, please document condition throughout progress notes and discharge summary. Thank You. CLINICAL INDICATORS Laboratory Chemistry- "Laboratory: 06/07 BUN 28, Crea1.86; 06/06 Crea 2.03" Carido PN p3 06/07 Dr. Gay- LUCINDA DS p2 06/07 Dr Garrido- has chronic kidney disease stage 3 and his creatinine slowly scot up to 2, at which point diuresis was caled back DS p1 06/07 Dr Garrido- discharge bun and creatinine are 29 and 1.86 RISK FACTORS Hypertension- H&P 06/02 Dr. Beltran Diabetes Mellitus- DS 06/07 Dr Garrido Obesity- DS 06/07 Dr Garrido Chronic Kidney Disease stage 3- DS 06/07 Dr Garrido TREATMENTS: diuresis was called back-DS 06/07 Dr Garrido BUN/ Creatinine monitoring-Laboratory Chemistry Plan: hold Lasix- PN 06/06 Dr Garrido Plan: watch for renal function- PN 06/06 Dr Garrido (This form is maintained as a part of the permanent medical record) 2014 [employer] All Rights Reserved [email or web address] [not provided] MTDD
== END 2019-06-07 18:35 | disposition home health service (06) | DRG 291 ==
LOC: ERS 14:51 → 2NO 17:42
PROVIDERS: ADMIT Internal Medicine; ATTEND Internal Medicine
DX: I13.0 Hypertensive heart and chronic kidney disease with heart failure and stage 1 through stage 4 chronic kidney disease, or unspecified chronic kidney disease (principal); I50.33 Acute on chronic diastolic (congestive) heart failure; J96.01 Acute respiratory failure with hypoxia; N17.9 Acute kidney failure, unspecified; N18.3 Chronic kidney disease, stage 3 (moderate); E66.9 Obesity, unspecified; E78.5 Hyperlipidemia, unspecified; D63.1 Anemia in chronic kidney disease; E11.22 Type 2 diabetes mellitus with diabetic chronic kidney disease; E78.00 Pure hypercholesterolemia, unspecified; N28.9 Disorder of kidney and ureter, unspecified; Z91.11 Patient's noncompliance with dietary regimen; Z86.718 Personal history of other venous thrombosis and embolism; Z68.37 Body mass index [BMI] 37.0-37.9, adult; Z87.891 Personal history of nicotine dependence; Z79.4 Long term (current) use of insulin; Z79.01 Long term (current) use of anticoagulants; Z79.899 Other long term (current) drug therapy; T50.1X5A Adverse effect of loop [high-ceiling] diuretics, initial encounter
CPT/HCPCS: 36415; 36416; 71045; 71275; 80048; 80053; 81003; 81015; 82550; 83880; 84484; 85025; 85610; 93005; 93306; 93798; 94640; 96374; J1815; J1940; J7620; Q0163; Q9966